=== PATIENT | female | born 1945 | race Caucasian/White ===

== ENCOUNTER 2020-10-11 08:40 | Outpatient (REF) | payer MEDICARE, SELFPAY ==
[2020-10-11 11:03] LABS: MANUAL DIFF FLAG NO
[2020-10-11 11:13] LABS: Basophils Percent Auto 0.5 % (0-2); Eosinophils Absolute Auto 0.1 X10*3/uL (0.0-0.4); Eosinophils Percent Auto 1.6 % (0-4); Hematocrit 42.9 % (37-47); Hemoglobin 14.1 g/dl (12.0-16.0); Imm Gran Abs Auto 0.04 X10*3/uL (0.00-0.03); Imm Gran Pct Auto 0.7 % (0.0-0.4); Lymphocytes Absolute Auto 1.2 X10*3/uL (1.2-4.9); Lymphocytes Percent Auto 19.9 % (20-40); Mean Corpuscular HGB Conc 32.9 g/dl (31.0-35.0); Mean Corpuscular Hemoglobin 30.3 pg (27.0-33.0); Mean Corpuscular Volume 92.1 fL (80-98); Mean Platelet Volume 12.1 fL (9.4-12.3); Monocytes Absolute Auto 0.5 X10*3/uL (0.1-1.2); Monocytes Percent Auto 8.8 % (2-11); Neutrophils Absolute Auto 4.2 X10*3/uL (2.0-8.3); Neutrophils Percent Auto 68.5 % (45-73); Platelet Count 160 X10*3/uL (160-400); Red Blood Count 4.66 X10*6/uL (4.20-5.50); Red Cell Distribution Width 11.9 % (11.0-16.0); White Blood Count 6.1 X10*3/uL (4.8-10.8)
[2020-10-11 11:38] LABS: Creatinine Urine 93.75 mg/dL; Microalbum/Creatinine Ratio Ur 38.4 ug/mg cr
[2020-10-11 11:46] LABS: Estimated Average Glucose 229 mg/dL; Hemoglobin A1c % 9.6 %
[2020-10-11 11:49] LABS: Alanine Aminotransferase 31 U/L (0-31); Albumin Level 4.5 g/dL (3.5-5.0); Alkaline Phosphatase 100 U/L (39-117); Anion Gap 15 (12-20); Aspartate Amino Transferase 24 U/L (5-31); Bilirubin Total 0.5 mg/dL (0.0-1.0); Blood Urea Nitrogen 24 mg/dL (9-16); Calcium 9.5 mg/dL (8.4-10.2); Carbon Dioxide 28 mmol/L (22-29); Chloride 100 mmol/L (96-108); Estimated Glomerular Filt Rate > 60; Glucose Random 257 mg/dL (60-115); Potassium 4.8 mmol/L (3.3-5.1); Sodium 138 mmol/L (135-145); Total Protein 7.1 g/dL (6.5-8.0)
[2020-10-11 11:51] LABS: Free T4 (Free Thyroxine) 0.99 ng/dL (0.71-1.85); Thyroid Stimulating Hormone 1.95 uIU/mL (0.32-4.0)
== END 2020-10-11 08:41 | disposition home or self-care (01) ==
LOC: HO.HMGCLDS 08:40
PROVIDERS: PCP Internal Medicine; Visit Provider Internal Medicine
DX: E11.9 Type 2 diabetes mellitus without complications (principal); I10 Essential (primary) hypertension; I25.10 Atherosclerotic heart disease of native coronary artery without angina pectoris; J44.9 Chronic obstructive pulmonary disease, unspecified; E03.9 Hypothyroidism, unspecified; E78.00 Pure hypercholesterolemia, unspecified
CPT/HCPCS: 36415; 80053; 82043; 83036; 84439; 84443; 85025

== ENCOUNTER 2020-10-28 08:31 | Outpatient (REF) | payer MEDICARE, SELFPAY ==
--- NOTE | ~2020-10-28 | MM_ITS ---
EXAMINATION: MM SCREENING DIGITAL BREAST TOMOSYNTHESIS, BILATERAL CLINICAL INFORMATION: Screening. Asymptomatic. The lifetime risk of breast cancer based on the Tyrer-Cuzick Model is 6.7%. COMPARISON: Mammography: July 11, 2019 and studies dating back to January 20, 2011 TECHNIQUE: Digital breast tomosynthesis is performed in both the craniocaudal and mediolateral oblique views along with computer-aided detection (CAD). Synthesized 2D images are generated from the tomosynthesis. FINDINGS: The breasts are heterogeneously dense, which may obscure small masses (ACR BI-RADS breast composition Category c). There are no significant masses, abnormal calcifications, or other abnormalities. MM/MM tomosynthesis screening BI IMPRESSION: There are no significant changes from prior study. ASSESSMENT: BI-RADS 1: Negative RECOMMENDATION: Routine annual mammography screening. This patient's information was entered into a reminder system with a target due date for their next mammogram.
== END 2020-10-28 08:32 | disposition home or self-care (01) ==
LOC: HO.MAMMO 08:31
PROVIDERS: PCP Internal Medicine; Visit Provider Internal Medicine
DX: Z12.31 Encounter for screening mammogram for malignant neoplasm of breast (principal)
CPT/HCPCS: 77063; 77067

== ENCOUNTER 2021-01-03 07:57 | Outpatient (REF) | payer MEDICARE, SELFPAY ==
[2021-01-03 12:08] LABS: MANUAL DIFF FLAG NO
[2021-01-03 12:24] LABS: Basophils Percent Auto 0.4 % (0-2); Eosinophils Absolute Auto 0.1 X10*3/uL (0.0-0.4); Eosinophils Percent Auto 1.7 % (0-4); Hematocrit 43.1 % (37-47); Imm Gran Abs Auto 0.02 X10*3/uL (0.00-0.03); Imm Gran Pct Auto 0.4 % (0.0-0.4); Lymphocytes Absolute Auto 1.1 X10*3/uL (1.2-4.9); Lymphocytes Percent Auto 19.4 % (20-40); Mean Corpuscular HGB Conc 32.5 g/dl (31.0-35.0); Mean Corpuscular Hemoglobin 30.4 pg (27.0-33.0); Mean Corpuscular Volume 93.7 fL (80-98); Mean Platelet Volume 11.9 fL (9.4-12.3); Monocytes Absolute Auto 0.5 X10*3/uL (0.1-1.2); Monocytes Percent Auto 9.6 % (2-11); Neutrophils Absolute Auto 3.7 X10*3/uL (2.0-8.3); Neutrophils Percent Auto 68.5 % (45-73); Platelet Count 156 X10*3/uL (160-400); Red Cell Distribution Width 11.8 % (11.0-16.0); White Blood Count 5.4 X10*3/uL (4.8-10.8)
[2021-01-03 12:27] LABS: Alanine Aminotransferase 39 U/L (0-31); Albumin Level 4.5 g/dL (3.5-5.0); Alkaline Phosphatase 93 U/L (39-117); Aspartate Amino Transferase 26 U/L (5-31); Bilirubin Direct 0.2 mg/dL (0.0-0.5); Bilirubin Total 0.6 mg/dL (0.0-1.0); Cholesterol 136 mg/dL; HDL Cholesterol 42 mg/dL; LDL Cholesterol Calculated 62 mg/dl; Triglycerides 164 mg/dL
[2021-01-03 12:31] LABS: Alanine Aminotransferase 39 U/L (0-31); Albumin Level 4.5 g/dL (3.5-5.0); Alkaline Phosphatase 93 U/L (39-117); Anion Gap 15 (12-20); Aspartate Amino Transferase 26 U/L (5-31); Bilirubin Total 0.6 mg/dL (0.0-1.0); Blood Urea Nitrogen 25 mg/dL (9-16); Calcium 9.8 mg/dL (8.4-10.2); Carbon Dioxide 28 mmol/L (22-29); Chloride 102 mmol/L (96-108); Estimated Glomerular Filt Rate > 60; Glucose Random 239 mg/dL (60-115); Potassium 5.2 mmol/L (3.3-5.1); Sodium 140 mmol/L (135-145); Total Protein 7.2 g/dL (6.5-8.0)
[2021-01-03 12:35] LABS: Estimated Average Glucose 203 mg/dL; Hemoglobin A1c % 8.7 %
== END 2021-01-03 07:58 | disposition home or self-care (01) ==
LOC: HO.HMGCLDS 07:57
PROVIDERS: PCP Internal Medicine; Visit Provider Internal Medicine Cardiovascular Disease
DX: I25.10 Atherosclerotic heart disease of native coronary artery without angina pectoris (principal); J44.9 Chronic obstructive pulmonary disease, unspecified; E11.9 Type 2 diabetes mellitus without complications; I10 Essential (primary) hypertension; I73.9 Peripheral vascular disease, unspecified
CPT/HCPCS: 36415; 80053; 80061; 80076; 82248; 83036; 85025

== ENCOUNTER 2021-04-01 07:11 | Outpatient (REF) | payer MEDICARE, SELFPAY ==
[2021-04-01 12:19] LABS: Free T4 (Free Thyroxine) 1.15 ng/dL (0.71-1.85); Thyroid Stimulating Hormone 1.76 uIU/mL (0.32-4.0)
[2021-04-01 12:22] LABS: Creatinine Urine 131.18 mg/dL; Microalbum/Creatinine Ratio Ur 23.6 ug/mg cr
[2021-04-01 12:30] LABS: Alanine Aminotransferase 25 U/L (0-31); Albumin Level 4.3 g/dL (3.5-5.0); Alkaline Phosphatase 83 U/L (39-117); Anion Gap 14 (12-20); Aspartate Amino Transferase 23 U/L (5-31); Bilirubin Total 0.6 mg/dL (0.0-1.0); Blood Urea Nitrogen 18 mg/dL (9-16); Calcium 9.4 mg/dL (8.4-10.2); Carbon Dioxide 24 mmol/L (22-29); Chloride 106 mmol/L (96-108); Estimated Glomerular Filt Rate > 60; Glucose Random 177 mg/dL (60-115); Potassium 4.6 mmol/L (3.3-5.1); Sodium 139 mmol/L (135-145); Total Protein 6.9 g/dL (6.5-8.0)
[2021-04-01 14:26] LABS: Estimated Average Glucose 160 mg/dL; Hemoglobin A1c % 7.2 %
== END 2021-04-01 07:12 | disposition home or self-care (01) ==
LOC: HO.HMGCLDS 07:11
PROVIDERS: PCP Internal Medicine; Visit Provider Internal Medicine
DX: E11.9 Type 2 diabetes mellitus without complications (principal); I25.10 Atherosclerotic heart disease of native coronary artery without angina pectoris; I10 Essential (primary) hypertension; E03.9 Hypothyroidism, unspecified
CPT/HCPCS: 36415; 80053; 82043; 83036; 84439; 84443

== ENCOUNTER 2021-07-16 09:45 | Outpatient (REF) | payer MEDICARE, SELFPAY ==
[2021-07-16 10:04] LABS: MANUAL DIFF FLAG NO
[2021-07-16 10:11] LABS: Basophils Percent Auto 0.6 % (0-2); Eosinophils Absolute Auto 0.1 X10*3/uL (0.0-0.4); Eosinophils Percent Auto 1.5 % (0-4); Hematocrit 44.4 % (37.0-47.0); Hemoglobin 14.5 g/dl (12.0-16.0); Imm Gran Abs Auto 0.04 X10*3/uL (0.00-0.03); Imm Gran Pct Auto 0.6 % (0.0-0.4); Lymphocytes Percent Auto 14.5 % (20-40); Mean Corpuscular HGB Conc 32.7 g/dl (31.0-35.0); Mean Corpuscular Hemoglobin 30.3 pg (27.0-33.0); Mean Corpuscular Volume 92.9 fL (80.0-98.0); Mean Platelet Volume 11.1 fL (9.4-12.3); Monocytes Absolute Auto 0.6 X10*3/uL (0.1-1.2); Monocytes Percent Auto 9.6 % (2-11); Neutrophils Absolute Auto 4.9 x10*3/uL (2.0-8.3); Neutrophils Percent Auto 73.2 % (45-73); Platelet Count 156 X10*3/uL (160-400); Red Blood Count 4.78 X10*6/uL (4.20-5.50); Red Cell Distribution Width 11.8 % (11.0-16.0); White Blood Count 6.7 X10*3/uL (4.8-10.8)
[2021-07-16 10:29] LABS: Estimated Average Glucose 166 mg/dL; Hemoglobin A1c % 7.4 %
[2021-07-16 10:48] LABS: Alanine Aminotransferase 28 U/L (0-31); Albumin Level 4.4 g/dL (3.5-5.0); Alkaline Phosphatase 83 U/L (39-117); Anion Gap 14 (12-20); Aspartate Amino Transferase 27 U/L (5-31); Bilirubin Total 0.4 mg/dL (0.0-1.0); Blood Urea Nitrogen 27 mg/dL (9-16); Calcium 9.7 mg/dL (8.4-10.2); Carbon Dioxide 26 mmol/L (22-29); Chloride 103 mmol/L (96-108); Cholesterol 146 mg/dL; Estimated Glomerular Filt Rate 60; Glucose Fasting 169 mg/dL (60-99); HDL Cholesterol 36 mg/dL; LDL Cholesterol Calculated 69 mg/dl; Magnesium 1.8 mg/dL (1.6-2.6); Sodium 138 mmol/L (135-145); Total Protein 7.3 g/dL (6.5-8.0); Triglycerides 208 mg/dL
[2021-07-16 11:13] LABS: Free T4 (Free Thyroxine) 1.21 ng/dL (0.71-1.85); Thyroid Stimulating Hormone 1.78 uIU/mL (0.32-4.0)
[2021-07-16 14:44] LABS: Creatinine Urine 56.93 mg/dL; Microalbum/Creatinine Ratio Ur 12.2 ug/mg cr
== END 2021-07-16 09:46 | disposition home or self-care (01) ==
LOC: HO.10HDL 09:45
PROVIDERS: Visit Provider Internal Medicine
DX: E03.9 Hypothyroidism, unspecified (principal); E11.9 Type 2 diabetes mellitus without complications; E78.00 Pure hypercholesterolemia, unspecified; I73.9 Peripheral vascular disease, unspecified; I25.10 Atherosclerotic heart disease of native coronary artery without angina pectoris
CPT/HCPCS: 36415; 80053; 80061; 82043; 83036; 83735; 84439; 84443; 85025

== ENCOUNTER 2021-11-03 07:55 | Outpatient (REF) | payer MEDICARE, SELFPAY ==
--- NOTE | ~2021-11-03 | MM_ITS ---
EXAMINATION: MM SCREENING DIGITAL BREAST TOMOSYNTHESIS, BILATERAL CLINICAL INFORMATION: Screening. Asymptomatic. The lifetime risk of breast cancer based on the Tyrer-Cuzick Model is 7%. COMPARISON: Mammography: 10/28/2020, 07/11/2019, 07/05/2018 TECHNIQUE: Digital breast tomosynthesis is performed in both the craniocaudal and mediolateral oblique views along with computer-aided detection (CAD). Synthesized 2D images are generated from the tomosynthesis. FINDINGS: There are scattered areas of fibroglandular density (ACR BI-RADS breast composition Category b). There are no significant masses, abnormal calcifications, or other abnormalities. Parenchymal pattern is similar to prior studies. There is no developing density or architectural abnormality. The axilla and skin contours are unremarkable. No significant changes. MM/MM tomosynthesis screening BI IMPRESSION: No mammographic evidence of malignancy. ASSESSMENT: BI-RADS 1: Negative RECOMMENDATION: Routine annual mammography screening. This patient's information was entered into a reminder system with a target due date for their next mammogram.
== END 2021-11-03 07:56 | disposition home or self-care (01) ==
LOC: HO.MAMMO 07:55
PROVIDERS: Visit Provider Internal Medicine
DX: Z12.31 Encounter for screening mammogram for malignant neoplasm of breast (principal)
CPT/HCPCS: 77063; 77067

== ENCOUNTER 2022-01-01 07:24 | Outpatient (REF) | payer MEDICARE, SELFPAY ==
[2022-01-01 11:19] LABS: MANUAL DIFF FLAG NO
[2022-01-01 11:26] LABS: Basophils Percent Auto 0.4 % (0-2); Eosinophils Absolute Auto 0.1 X10*3/uL (0.0-0.4); Eosinophils Percent Auto 1.6 % (0-4); Hematocrit 43.3 % (37.0-47.0); Hemoglobin 13.9 g/dl (12.0-16.0); Imm Gran Abs Auto 0.01 X10*3/uL (0.00-0.03); Imm Gran Pct Auto 0.2 % (0.0-0.4); Lymphocytes Absolute Auto 0.8 X10*3/uL (1.2-4.9); Lymphocytes Percent Auto 14.7 % (20-40); Mean Corpuscular HGB Conc 32.1 g/dl (31.0-35.0); Mean Corpuscular Volume 93.5 fL (80.0-98.0); Mean Platelet Volume 11.6 fL (9.4-12.3); Monocytes Absolute Auto 0.6 X10*3/uL (0.1-1.2); Monocytes Percent Auto 10.9 % (2-11); Neutrophils Absolute Auto 3.7 x10*3/uL (2.0-8.3); Neutrophils Percent Auto 72.2 % (45-73); Platelet Count 144 X10*3/uL (160-400); Red Blood Count 4.63 X10*6/uL (4.20-5.50); White Blood Count 5.2 X10*3/uL (4.8-10.8)
[2022-01-01 11:31] LABS: Estimated Average Glucose 171 mg/dL; Hemoglobin A1c % 7.6 %
[2022-01-01 11:41] LABS: Creatinine Urine 182.26 mg/dL; Microalbum/Creatinine Ratio Ur 59.2 ug/mg cr
[2022-01-01 11:51] LABS: Alanine Aminotransferase 34 U/L (0-31); Albumin Level 4.3 g/dL (3.5-5.0); Alkaline Phosphatase 84 U/L (39-117); Anion Gap 14 (12-20); Aspartate Amino Transferase 28 U/L (5-31); Bilirubin Total 0.4 mg/dL (0.0-1.0); Blood Urea Nitrogen 17 mg/dL (9-16); Calcium 9.6 mg/dL (8.4-10.2); Carbon Dioxide 26 mmol/L (22-29); Chloride 103 mmol/L (96-108); Cholesterol 132 mg/dL; Estimated Glomerular Filt Rate > 60; Glucose Fasting 238 mg/dL (60-99); HDL Cholesterol 37 mg/dL; LDL Cholesterol Calculated 57 mg/dl; Potassium 4.3 mmol/L (3.3-5.1); Sodium 139 mmol/L (135-145); Total Protein 7.1 g/dL (6.5-8.0); Triglycerides 193 mg/dL
[2022-01-01 12:13] LABS: Free T4 (Free Thyroxine) 1.06 ng/dL (0.71-1.85); Thyroid Stimulating Hormone 0.99 uIU/mL (0.32-4.0)
== END 2022-01-01 07:25 | disposition home or self-care (01) ==
LOC: HO.HMGCLDS 07:24
PROVIDERS: PCP Internal Medicine; Visit Provider Internal Medicine
DX: I25.10 Atherosclerotic heart disease of native coronary artery without angina pectoris (principal); I73.9 Peripheral vascular disease, unspecified; E11.9 Type 2 diabetes mellitus without complications; E03.9 Hypothyroidism, unspecified; E78.00 Pure hypercholesterolemia, unspecified
CPT/HCPCS: 36415; 80053; 80061; 82043; 83036; 84439; 84443; 85025

== ENCOUNTER 2022-03-14 05:06 | Emergency (ER) | payer MEDICARE, SELFPAY ==
--- NOTE | ~2022-03-14 | XR_ITS ---
EXAMINATION: XR ELBOW, LEFT CLINICAL INFORMATION: Swelling and redness COMPARISON: None TECHNIQUE: AP, lateral, and oblique views of the left elbow. FINDINGS: No fracture or dislocation. Alignment is anatomic. Joint spaces are maintained. No elbow joint effusion. Soft tissue swelling overlies the olecranon. XR/XR elbow LT min 3V IMPRESSION: No acute osseous abnormality. Soft tissue swelling over the olecranon could be associated with bursitis.
[2022-03-14 05:17] VITALS: BP 210/98; PULSE 93; RESP 18; TEMP 36.4; O2SAT 95; BMI 26.5
--- NOTE | 2022-03-14 06:41 | ED_ITS ---
HPI - Extremity Problem General Chief complaint: Extremity Problem Stated complaint: L elbow swelling, psoriasis ? Time Seen by Provider: 03/14/22 06:41 Source: patient Mode of arrival: ambulatory History of Present Illness HPI Narrative: 76-year-old female who presents with left elbow swelling after playing golf yesterday but does note that she was picking at her elbow approximately 2 days ago and has a history of diabetes as well as hypertension and denies any fevers or chills. Related Data Previous Rx's Medication Instructions Recorded amoxicillin 875 mg-potassium 1 tab PO Q12H 5 days #10 tabs 03/14/22 clavulanate 125 mg tablet Allergies Allergy/AdvReac Type Severity Reaction Status Date / Time No Known Allergies Allergy Verified 03/14/22 05:20 [No Known Allergies*] Review of Systems Review of Systems: Pertinent positives and negatives as stated in the HPI 10 point review of systems is otherwise negative. PMFSH Past Medical History Source: nursing notes reviewed Social History Social History Advance Directives: No Advance Directives Information Provided: Yes Physical Exam Vital Signs: Vital Signs: Last Vital Signs Temp 97.5 F 03/14/22 05:17 Pulse 93 03/14/22 05:17 Resp 18 03/14/22 05:17 BP 210/98 H 03/14/22 05:17 Pulse Ox 95 03/14/22 05:17 O2 Del Method 03/14/22 05:17 BMI result Body Mass Index 26.5 VITAL SIGNS: Reviewed. GENERAL: Well developed, well nourished, in no acute distress. HEAD: Normocephalic/atraumatic EYES: PERRLA, EOMI EARS: Ext canals without abnormality OROPHARYNX: no oral lesions noted, posterior pharynx clear LUNGS: Normal breath sounds. No adventitious sounds or accessory muscle use. SpO2<95> CARDIOVASCULAR: Regular rate and rhythm without noted murmurs, no JVD or lower extremity edema. ABDOMEN: Soft, non-tender, non-distended with bowel sounds. MUSCULOSKELETAL: No tenderness, deformities, or effusions noted on gross inspection. EXTREMITIES: No cyanosis, clubbing or edema; left upper extremity: There is noted swelling and redness to the left elbow. SKIN: Inspection of the skin reveals no rashes NEUROLOGIC: Alert and oriented x 4. Strength and sensation to light touch were grossly intact x 4. Course Course Course Narrative: 36-year-old female with history and clinical presentation suspicious for bursitis, but she does have diabetes and does report having picked at her elbow raising concerns for possible infection/bursitis. She was provided with combination analgesics and will receive an Tera wrap for compression and provided a backup prescription for antibiotics. Discharge Plan Discharge Clinical Impression: Bursitis, Golfers elbow of left upper extremity Patient Disposition: Home, Self-Care Instructions: Elbow Bursitis (ED) Additional Instructions: 1. Resume all home medications as prescribed. 2. Recommend jrxl-pdn-mokcejx Tylenol/ibuprofen as needed for pain control. Keep Tera wrap in place. 3. Follow-up with your primary care provider on Wednesday morning for re- evaluation. Return to the ER for any worsening symptoms. Prescriptions: New amoxicillin-pot clavulanate 875-125 mg tablet 1 tab PO Q12H 5 Days Qty: 10 0RF Referrals: Eric Chase MD [Primary Care Provider] -
[2022-03-14] MEDS: Acetaminophen 325 MG TABLET 975 MG PO (07:47)
[2022-03-14] MEDS: Ketorolac Tromethamine 15 MG/ML VIAL IM (07:47)
[2022-03-14 08:17] VITALS: BP 160/79; PULSE 79; RESP 16; O2SAT 96
== END 2022-03-14 08:24 | disposition home or self-care (01) ==
PROVIDERS: Emergency Provider Student in an Organized Health Care Education/Training Program; PCP Internal Medicine
DX: M70.32 Other bursitis of elbow, left elbow (principal); Y93.53 Activity, golf; M77.02 Medial epicondylitis, left elbow
CPT/HCPCS: 73080; 96372; 99284; J1885

== ENCOUNTER 2022-04-09 08:02 | Outpatient (REF) | payer MEDICARE, SELFPAY ==
[2022-04-09 12:22] LABS: Estimated Average Glucose 169 mg/dL; Hemoglobin A1c % 7.5 %
[2022-04-09 12:50] LABS: Alanine Aminotransferase 31 U/L (0-31); Albumin Level 4.3 g/dL (3.5-5.0); Alkaline Phosphatase 78 U/L (39-117); Anion Gap 18 (12-20); Aspartate Amino Transferase 27 U/L (5-31); Bilirubin Total 0.5 mg/dL (0.0-1.0); Blood Urea Nitrogen 19 mg/dL (9-16); Calcium 9.7 mg/dL (8.4-10.2); Carbon Dioxide 27 mmol/L (22-29); Chloride 101 mmol/L (96-108); Estimated Glomerular Filt Rate > 60; Glucose Random 244 mg/dL (60-115); Sodium 141 mmol/L (135-145); Total Protein 7.4 g/dL (6.5-8.0)
== END 2022-04-09 08:03 | disposition home or self-care (01) ==
LOC: HO.HMGCLDS 08:02
PROVIDERS: PCP Internal Medicine; Visit Provider Internal Medicine
DX: I10 Essential (primary) hypertension (principal); E11.9 Type 2 diabetes mellitus without complications
CPT/HCPCS: 36415; 80053; 83036

== ENCOUNTER → 2022-05-12 12:48 | Outpatient (BNVA) | payer MEDICARE, SELFPAY | PROVIDERS: PCP Internal Medicine; Referring Provider Internal Medicine; Visit Provider Internal Medicine Cardiovascular Disease | DX: I25.10 Atherosclerotic heart disease of native coronary artery without angina pectoris (principal); I73.9 Peripheral vascular disease, unspecified | CPT/HCPCS: 93005; 99202 ==

== ENCOUNTER 2022-06-27 09:08 | Outpatient (REF) | payer MEDICARE, SELFPAY ==
[2022-06-27 11:31] LABS: Blood Urea Nitrogen 17 mg/dL (9-16); Estimated Glomerular Filt Rate > 60
== END 2022-06-27 09:09 | disposition home or self-care (01) ==
LOC: HO.HMGCLDS 09:08
PROVIDERS: PCP Internal Medicine; Visit Provider Surgery Vascular Surgery
DX: I70.613 Atherosclerosis of nonbiological bypass graft(s) of the extremities with intermittent claudication, bilateral legs (principal)
CPT/HCPCS: 36415; 82565; 84520

== ENCOUNTER 2022-07-09 08:04 | Outpatient (REF) | payer MEDICARE, SELFPAY ==
[2022-07-09 11:21] LABS: MANUAL DIFF FLAG NO
[2022-07-09 11:47] LABS: Basophils Percent Auto 0.5 % (0-2); Eosinophils Absolute Auto 0.1 X10*3/uL (0.0-0.4); Eosinophils Percent Auto 1.2 % (0-4); Hematocrit 45.1 % (37.0-47.0); Hemoglobin 14.2 g/dl (12.0-16.0); Imm Gran Abs Auto 0.03 X10*3/uL (0.00-0.03); Imm Gran Pct Auto 0.5 % (0.0-0.4); Lymphocytes Absolute Auto 1.1 X10*3/uL (1.2-4.9); Lymphocytes Percent Auto 18.9 % (20-40); Mean Corpuscular HGB Conc 31.5 g/dl (31.0-35.0); Mean Corpuscular Hemoglobin 29.7 pg (27.0-33.0); Mean Corpuscular Volume 94.4 fL (80.0-98.0); Mean Platelet Volume 11.7 fL (9.4-12.3); Monocytes Absolute Auto 0.5 X10*3/uL (0.1-1.2); Neutrophils Absolute Auto 4.1 x10*3/uL (2.0-8.3); Neutrophils Percent Auto 69.9 % (45-73); Platelet Count 142 X10*3/uL (160-400); Red Blood Count 4.78 X10*6/uL (4.20-5.50); Red Cell Distribution Width 11.9 % (11.0-16.0); White Blood Count 5.8 X10*3/uL (4.8-10.8)
[2022-07-09 12:23] LABS: Creatinine Urine 228.12 mg/dL; Microalbum/Creatinine Ratio Ur 46.9 ug/mg cr
[2022-07-09 12:37] LABS: Alanine Aminotransferase 28 U/L (0-31); Albumin Level 4.2 g/dL (3.5-5.0); Alkaline Phosphatase 74 U/L (39-117); Anion Gap 13 (12-20); Aspartate Amino Transferase 24 U/L (5-31); Bilirubin Total 0.4 mg/dL (0.0-1.0); Blood Urea Nitrogen 18 mg/dL (9-16); Calcium 9.1 mg/dL (8.4-10.2); Carbon Dioxide 26 mmol/L (22-29); Chloride 106 mmol/L (96-108); Cholesterol 133 mg/dL; Estimated Glomerular Filt Rate > 60; Free T4 (Free Thyroxine) 1.16 ng/dL (0.71-1.85); Glucose Fasting 245 mg/dL (60-99); HDL Cholesterol 39 mg/dL; LDL Cholesterol Calculated 66 mg/dl; Sodium 141 mmol/L (135-145); Thyroid Stimulating Hormone 1.63 uIU/mL (0.32-4.0); Total Protein 6.7 g/dL (6.5-8.0); Triglycerides 141 mg/dL
[2022-07-09 13:01] LABS: Estimated Average Glucose 177 mg/dL; Hemoglobin A1c % 7.8 %
== END 2022-07-09 08:05 | disposition home or self-care (01) ==
LOC: HO.HMGCLDS 08:04
PROVIDERS: PCP Internal Medicine; Visit Provider Internal Medicine
DX: I25.10 Atherosclerotic heart disease of native coronary artery without angina pectoris (principal); I73.9 Peripheral vascular disease, unspecified; I10 Essential (primary) hypertension; E11.9 Type 2 diabetes mellitus without complications; E03.9 Hypothyroidism, unspecified
CPT/HCPCS: 36415; 80053; 80061; 82043; 83036; 84439; 84443; 85025

== ENCOUNTER 2022-11-06 07:47 | Outpatient (REF) | payer MEDICARE, SELFPAY ==
--- NOTE | ~2022-11-06 | MM_ITS ---
EXAMINATION: MM SCREENING DIGITAL BREAST TOMOSYNTHESIS, BILATERAL CLINICAL INFORMATION: Screening. Asymptomatic. The lifetime risk of breast cancer based on the Tyrer-Cuzick Model is 6%. COMPARISON: Mammography: 11/03/2021, 10/28/2020, 07/11/2019 TECHNIQUE: Digital breast tomosynthesis is performed in both the craniocaudal and mediolateral oblique views along with computer-aided detection (CAD). Synthesized 2D images are generated from the tomosynthesis. FINDINGS: There are scattered areas of fibroglandular density (ACR BI-RADS breast composition Category b). There are no significant masses, abnormal calcifications, or other abnormalities. No architectural abnormality or developing density or significant change from prior studies. Incidental low left axillary tail node is again noted. There are scattered bilateral benign coarse round and rim calcifications. MM/MM tomosynthesis screening BI IMPRESSION: No mammographic evidence of malignancy. ASSESSMENT: BI-RADS 2: Benign RECOMMENDATION: Routine annual mammography screening. This patient's information was entered into a reminder system with a target due date for their next mammogram.
== END 2022-11-06 07:48 | disposition home or self-care (01) ==
LOC: HO.MAMMO 07:47
PROVIDERS: PCP Internal Medicine; Visit Provider Internal Medicine
DX: Z12.31 Encounter for screening mammogram for malignant neoplasm of breast (principal)
CPT/HCPCS: 77063; 77067

== ENCOUNTER 2023-01-13 08:05 | Outpatient (REF) | payer MEDICARE, SELFPAY ==
[2023-01-13 11:22] LABS: MANUAL DIFF FLAG NO
[2023-01-13 11:37] LABS: Basophils Percent Auto 0.7 % (0-2); Eosinophils Absolute Auto 0.1 X10*3/uL (0.0-0.4); Hemoglobin 14.1 g/dl (12.0-16.0); Imm Gran Abs Auto 0.03 X10*3/uL (0.00-0.03); Imm Gran Pct Auto 0.6 % (0.0-0.4); Lymphocytes Absolute Auto 1.2 X10*3/uL (1.2-4.9); Lymphocytes Percent Auto 21.8 % (20-40); Mean Corpuscular HGB Conc 31.3 g/dl (31.0-35.0); Mean Corpuscular Hemoglobin 29.1 pg (27.0-33.0); Mean Corpuscular Volume 92.8 fL (80.0-98.0); Mean Platelet Volume 11.8 fL (9.4-12.3); Monocytes Absolute Auto 0.6 X10*3/uL (0.1-1.2); Monocytes Percent Auto 10.5 % (2-11); Neutrophils Absolute Auto 3.5 x10*3/uL (2.0-8.3); Neutrophils Percent Auto 64.4 % (45-73); Platelet Count 129 X10*3/uL (160-400); Red Blood Count 4.85 X10*6/uL (4.20-5.50); Red Cell Distribution Width 12.2 % (11.0-16.0); White Blood Count 5.4 X10*3/uL (4.8-10.8)
[2023-01-13 11:50] LABS: Estimated Average Glucose 177 mg/dL; Hemoglobin A1c % 7.8 %
[2023-01-13 12:08] LABS: Alanine Aminotransferase 29 U/L (0-31); Albumin Level 4.3 g/dL (3.5-5.0); Alkaline Phosphatase 83 U/L (39-117); Anion Gap 10 (12-20); Aspartate Amino Transferase 25 U/L (5-31); Bilirubin Total 0.5 mg/dL (0.0-1.0); Blood Urea Nitrogen 18 mg/dL (9-16); Calcium 9.6 mg/dL (8.4-10.2); Carbon Dioxide 29 mmol/L (22-29); Chloride 105 mmol/L (96-108); Estimated Glomerular Filt Rate > 60; Free T4 (Free Thyroxine) 1.17 ng/dL (0.71-1.85); Glucose Random 200 mg/dL (60-115); Potassium 4.7 mmol/L (3.3-5.1); Sodium 139 mmol/L (135-145); Thyroid Stimulating Hormone 1.62 uIU/mL (0.32-4.0); Total Protein 7.3 g/dL (6.5-8.0)
== END 2023-01-13 08:06 | disposition home or self-care (01) ==
LOC: HO.HMGCLDS 08:05
PROVIDERS: PCP Internal Medicine; Visit Provider Internal Medicine
DX: J44.9 Chronic obstructive pulmonary disease, unspecified (principal); I25.10 Atherosclerotic heart disease of native coronary artery without angina pectoris; I10 Essential (primary) hypertension; E11.9 Type 2 diabetes mellitus without complications; R35.1 Nocturia
CPT/HCPCS: 36415; 80053; 83036; 84439; 84443; 85025

== ENCOUNTER → 2023-05-31 07:49 | Outpatient (REF) | payer MEDICARE, SELFPAY ==
--- NOTE | 2023-05-31 07:52 | CA_ITS ---
Transthoracic Echocardiogram Patient (Last, First, Middle): Karina Tsai A Gender: Female Date of : 1945 Age: 77 Procedure Date: 05/31/2023 Procedure Type: Transthoracic Echocardiogram Location: OP Height: 160.02 cm Weight: 67.13 kg BSA: 1.70 m2 Heart Rate: 67 bpm BP: 169 / 90 mmHg Grants Administrator: PATIENCE Referring MD: Eric Chase MD Symptoms: R01.1 MURMUR Study Quality: Adequate ECG Rhythm: Sinus Conclusions: - The left ventricular systolic function is hyperdynamic. The visually estimated ejection fraction is >70%. - Aortic valve sclerosis, but no significant stenosis. - There is moderate mitral annular calcification. Findings Left Ventricle Normal left ventricular cavity size. The left ventricular systolic function is hyperdynamic. The visually estimated ejection fraction is >70%. There is no evidence of regional wall motion abnormalities. Evidence suggests grade I (mild) diastolic dysfunction. There is severe septal asymmetric hypertrophy. LV peak GLS 18.4%. Right Ventricle Normal right ventricular cavity size. There is mildly decreased right ventricular systolic function. Atria Both atria are normal in size. Aortic Valve There is mild calcification of the aortic valve. There is no aortic valve regurgitation. No significant aortic stenosis. Mitral Valve There is mild anterior mitral leaflet thickening. There is moderate mitral annular calcification. There is mild mitral valve regurgitation. There is no mitral valve stenosis. Pulmonic Valve The pulmonic valve is likely normal. Tricuspid Valve Normal tricuspid valve structure. There is trace tricuspid valve regurgitation. There is no evidence of pulmonary hypertension. Great Vessels The asc aorta is normal in size. Venous The inferior vena cava is normal in size and collapses greater than 50% with inspiration. Pericardium/Pleural Prominent epicardial adipose tissue noted. There is no evidence of pericardial effusion. Prior Study Comparison No prior study available for comparison. Measurements 2D Linear Measurements IVSd: 1.68 0.6-0.9/0.6-1.0 cm LVIDd: 4.29 3.9-5.3/4.2-5.9 cm LVIDd Index: 2.52 2.4-3.2/2.2-3.1 cm/m2 LVIDs: 2.23 2.0-3.6 cm LVPWd: 0.95 0.7-1.1 cm LA Diam: 3.40 2.7-3.8/3.0-4.0 cm LAIDs Index: 2.00 1.5-2.3 cm/m2 LV Mass: 262.07 67-162/88-224 g LV Mass Index: 154.16 43-95/49-115 g/m2 LVOT Diam: 1.80 3.0+(-)1.3 cm 2D Systolic Function EF 4C: 78.20 >55% EF 2C: 75.10 >55% EF BiP: 76.90 >55% Mitral Valve MV Pk E: 1.09 MV PK A: 1.42 MV Decel Time: 285.00 E/A: 0.80 E'Lateral: 5.00 E'Medial: 4.46 E/E' Med: 24.40 E/E' Lat: 21.80 PHT: 84.00 MVA PHT: 2.62 Decel Moffat: 3.82 Aortic Valve AoV Pk Magdaleno: 1.84 AoV Mn Magdaleno: 1.29 AoV VTI: 0.46 AoV Pk Grad: 14.00 Aov Mn Grad: 7.00 LUCILLE Cont.VTI: 1.51 LVOT LVOT Pk Magdaleno: 1.05 LVOT Mn Magdaleno: 0.80 LVOT VTI: 0.27 LVOT Pk Grad: 4.00 LVOT Mn Grad: 3.00 LVOT Diam: 1.80 LVOT Area: 2.54 Diastolic Function MV Pk E: 1.09 MV Pk A: 1.42 E/A: 0.80 E'Medial: 4.46 E/E' Med: 24.40 E' Laterial: 5.00 E/E' Lat: 21.80 Right Ventricle TAPSE (mm): 15.50 TVS' Magdaleno: 10.10 Tricuspid Valve TR Pk Magdaleno: 2.13 TR Pk Grad: 18.00 RA Press: 3.00 RVSP: 21.00 Great Vessels Aorta Sinus of Valsalva: 3.10 2.0-3.5 cm Ao Asc: 3.30 2.1-3.4 cm Pulmonary Valve PV Pk Magdaleno: 0.87 Peak PV Grad: 3.00 Updated in Other Vendor System with Status of Final Diallo Naranjo MD electronically signed on 05/31/2023 9:33:09 AM with status of Final
== END ==
LOC: HO.CARD 07:49
PROVIDERS: PCP Internal Medicine; Visit Provider Internal Medicine
DX: R01.1 Cardiac murmur, unspecified (principal)
CPT/HCPCS: 93306; 93356

== ENCOUNTER → 2023-05-31 07:52 | Outpatient (BNV) | payer MEDICARE, SELFPAY | PROVIDERS: PCP Internal Medicine; Visit Provider Internal Medicine | DX: I34.0 Nonrheumatic mitral (valve) insufficiency (principal) | CPT/HCPCS: 93306 ==

== ENCOUNTER 2023-06-01 08:48 | Outpatient (AMB) | payer MEDICARE, SELFPAY ==
[2023-06-01 08:50] VITALS: BP 130/82; PULSE 62; BMI 26.6
--- NOTE | 2023-06-01 08:50 | A.OFFVIS_ITS ---
Intake Vital Signs 06/01/23 08:50 Height 5 ft 3 in Weight 149 lb 14.629 oz BMI 26.6 BP 130/82 Blood Pressure Location Lt brachial Position Sitting Pulse 62 Intake Visit Reasons: 1 yr f/up Intake Note: 1 year follow-up with ekg after echo feeling good Cosmetic Counselor Required: No Allergies No Known Allergies [No Known Allergies*] Allergy (Verified 03/14/22 05:20) Medication List - Last Reconciled 06/01/23 by Darshan Estrada MD aspirin (Adult Aspirin Regimen) 81 mg PO DAILY [id number]-hib-[id number]-and 600 mg calcium- 800 unit-50 mg 1 tab PO BEDTIME flaxseed oil ([place]-3 Flaxseed Oil) 1,000 mg PO DAILY gabapentin 300 mg PO DAILY glipizide 10 mg PO BID levothyroxine 100 mcg PO DAILY losartan 100 mg PO DAILY metformin ER 1,000 mg PO BID metoprolol tartrate 50 mg PO BID rosuvastatin 40 mg PO DAILY sitagliptin phosphate (Januvia) 50 mg PO DAILY HPI HPI Comments History of Present Illness Details Karina comes for follow-up. She underwent a right lower extremity surgical revascularization for limiting claudication. She is doing well with improved claudication that lower extremity although has not claudication left lower extremity being followed by vascular surgery. She also going to have carotid duplex done in about a month's time at [facility] with Dr. Gentile. She denies any anginal symptoms with her current activity level. She takes all her medications. Last LDL was 66 mg/dL. No prolonged palpitation irregular heartbeat. No lightheadedness, syncope. Recent echo could does hyperdynamic LV ejection fraction greater than 70% with calcific valve disease without significant abnormality with hemodynamics [facility] Medical History Tobacco use Diabetes Hyperlipidemia HTN (hypertension) Carotid disease, bilateral PVD (peripheral vascular disease) CAD (coronary artery disease) Surgical History Status post bilateral carotid endarterectomy Stented coronary artery Review of Systems Const Denies chills, Denies fatigue, Denies fever(s), Denies frequent falls, Denies weakness, Denies weight gain and Denies weight loss ENT Denies dizziness Card Denies chest pain, Denies leg edema, Denies lightheadedness, Denies palpitations, Denies dyspnea, Denies dyspnea on exertion, Denies orthopnea and Denies other (loss of consciousness) Resp Denies cough, Denies dyspnea and Denies dyspnea on exertion GI Denies hematochezia and Denies change in stool character Musc Denies abnormal gait, Denies muscle weakness, Denies numbness, Denies radiating pain into limb and Denies tingling Neuro Denies Abnormal speech present, Denies abnormal gait, Denies dizziness, Denies frequent falls, Denies numbness, Denies tingling and Denies weakness Endo Denies fatigue and Denies palpitations Physical Exam Vital Signs: Last Vital Signs Pulse 62 06/01/23 08:50 BP 130/82 06/01/23 08:50 BMI result Body Mass Index 26.6 Const General: cooperative, comfortable, no acute distress, alert, awake and Physically active Nutritional Appearance: thin Orientation/consciousness: patient oriented x3 Limitations: no limitations HEENT Head: Yes normocephalic and Yes atraumatic Neck Neck: Yes trachea midline, Yes supple and Yes no JVD Carotids: bruit on the left Chest Chest palpation & inspection: normal inspection of the chest Resp Effort & Inspection: normal respiratory effort Auscultation: clear to auscultation bilaterally and diminished lung sounds Cardio Jugular venous distension: no JVD Palpation: normal PMI Rate: regular rate Rhythm: regular rhythm Heart sounds: S1 normal heart sound present, S2 normal heart sound present, no click, no gallops, Murmur heart sound present systolic early and no rubs Peripheral pulses: other (Absent distal pulses) GI Auscultation: normal bowel sounds Skin General skin exam: no rashes or lesions noted Neuro General: patient oriented x3 and no focal motor deficits Speech: No Abnormal speech present Extrem General: Yes no clubbing, cyanosis or edema Office Procedures EKG Details: EKG shows normal sinus rhythm with low-voltage QRS 50636-[id number], Complete Assessment & Plan Assessment & Plan (1) CAD (coronary artery disease): Code(s): I25.10 - Atherosclerotic heart disease of [place] coronary artery without angina pectoris Plan: CAD with remote RCA stenting with no current symptoms of angina at low threshold with diffuse vascular disease requiring revascularization and still limiting claudication. Continue aggressive medical therapy. Complete smoking cessation was advised although she says this is very difficult. She is currently on low- dose aspirin therapy and we discussed benefits and addition of low dose anticoagulant therapy such as Xarelto 2.5 mg b.i.d. which has shown to reduce limb loss events as well as cardiovascular events. She wants to think about it. Continue high-intensity statin therapy. Continue aggressive management of diabetes as well as hypertension. Goal hemoglobin A1c less than 7% being pursue 3 our office. Goal blood pressure less than 130/84. (2) HTN (hypertension): Code(s): I10 - Essential (primary) hypertension Plan: Hypertension which is currently well optimized on current therapy with losartan and metoprolol. Continue the same. Advised to monitor blood pressure at home and maintain a log. Goal blood pressure less than 130/84. Low-salt diet was discussed advised to maintain heart healthy lifestyle. Will follow up in the clinic in 1 year's time, sooner p.r.n.. Thank you for allowing me to partake in her care Coding Level of Care Code Est Pt Level 4 (81068) Diagnoses CAD (coronary artery disease) I25.10 HTN (hypertension) I10 CPT Codes EKG - CPT: 55799-[id number], Complete ([id number])
== END 2023-06-01 09:12 | disposition home or self-care (01) ==
PROVIDERS: Visit Provider Internal Medicine Cardiovascular Disease
DX: I25.10 Atherosclerotic heart disease of native coronary artery without angina pectoris (principal); I10 Essential (primary) hypertension
CPT/HCPCS: 93010; 99214

== ENCOUNTER → 2023-06-01 08:48 | Outpatient (BNVA) | payer MEDICARE, SELFPAY | PROVIDERS: Visit Provider Internal Medicine Cardiovascular Disease | DX: I25.10 Atherosclerotic heart disease of native coronary artery without angina pectoris (principal); I10 Essential (primary) hypertension | CPT/HCPCS: 93005; 99212 ==

== ENCOUNTER 2023-06-21 07:26 | Outpatient (REF) | payer MEDICARE, SELFPAY ==
[2023-06-21 11:31] LABS: MANUAL DIFF FLAG NO
[2023-06-21 11:43] LABS: Basophils Percent Auto 0.6 % (0-2); Eosinophils Absolute Auto 0.1 X10*3/uL (0.0-0.4); Eosinophils Percent Auto 1.6 % (0-4); Hematocrit 44.8 % (37.0-47.0); Hemoglobin 14.5 g/dl (12.0-16.0); Imm Gran Abs Auto 0.04 X10*3/uL (0.00-0.03); Imm Gran Pct Auto 0.6 % (0.0-0.4); Lymphocytes Absolute Auto 1.2 X10*3/uL (1.2-4.9); Lymphocytes Percent Auto 18.1 % (20-40); Mean Corpuscular HGB Conc 32.4 g/dl (31.0-35.0); Mean Corpuscular Hemoglobin 30.5 pg (27.0-33.0); Mean Corpuscular Volume 94.3 fL (80.0-98.0); Mean Platelet Volume 12.2 fL (9.4-12.3); Monocytes Absolute Auto 0.6 X10*3/uL (0.1-1.2); Monocytes Percent Auto 8.7 % (2-11); Neutrophils Absolute Auto 4.5 x10*3/uL (2.0-8.3); Neutrophils Percent Auto 70.4 % (45-73); Platelet Count 137 X10*3/uL (160-400); Red Blood Count 4.75 X10*6/uL (4.20-5.50); Red Cell Distribution Width 11.9 % (11.0-16.0); White Blood Count 6.5 X10*3/uL (4.8-10.8)
[2023-06-21 11:48] LABS: Estimated Average Glucose 177 mg/dL; Hemoglobin A1c % 7.8 % (<6.0)
[2023-06-21 12:01] LABS: Creatinine Urine 207.15 mg/dL; Microalbum/Creatinine Ratio Ur 24.6 ug/mg cr (<30)
[2023-06-21 12:23] LABS: Alanine Aminotransferase 30 U/L (0-31); Albumin Level 4.2 g/dL (3.5-5.0); Alkaline Phosphatase 81 U/L (39-117); Anion Gap 12 (12-20); Aspartate Amino Transferase 26 U/L (5-31); Bilirubin Total 0.4 mg/dL (0.0-1.0); Blood Urea Nitrogen 19 mg/dL (9-16); Calcium 9.7 mg/dL (8.4-10.2); Carbon Dioxide 28 mmol/L (22-29); Chloride 104 mmol/L (96-108); Cholesterol 136 mg/dL (<200); Estimated Glomerular Filt Rate > 60; Free T4 (Free Thyroxine) 1.08 ng/dL (0.71-1.85); Glucose Fasting 252 mg/dL (60-99); HDL Cholesterol 39 mg/dL (>40); LDL Cholesterol Calculated 62 mg/dL (<100); Potassium 4.6 mmol/L (3.3-5.1); Sodium 139 mmol/L (135-145); Thyroid Stimulating Hormone 1.69 uIU/mL (0.32-4.0); Total Protein 7.1 g/dL (6.5-8.0); Triglycerides 177 mg/dL (<150)
== END 2023-06-21 07:27 | disposition home or self-care (01) ==
LOC: HO.HMGCLDS 07:26
PROVIDERS: PCP Internal Medicine; Visit Provider Internal Medicine
DX: J44.9 Chronic obstructive pulmonary disease, unspecified (principal); I25.10 Atherosclerotic heart disease of native coronary artery without angina pectoris; I10 Essential (primary) hypertension; E11.9 Type 2 diabetes mellitus without complications; E78.00 Pure hypercholesterolemia, unspecified; E03.9 Hypothyroidism, unspecified
CPT/HCPCS: 36415; 80053; 80061; 82043; 82570; 83036; 84439; 84443; 85025

== ENCOUNTER 2023-10-21 09:10 | Outpatient (REF) | payer MEDICARE, SELFPAY ==
[2023-10-21 11:32] LABS: Estimated Average Glucose 177 mg/dL; Hemoglobin A1c % 7.8 % (<6.0)
[2023-10-21 11:41] LABS: Alanine Aminotransferase 27 U/L (0-31); Albumin Level 4.3 g/dL (3.5-5.0); Alkaline Phosphatase 91 U/L (39-117); Anion Gap 16 (12-20); Aspartate Amino Transferase 23 U/L (5-31); Bilirubin Total 0.4 mg/dL (0.0-1.0); Blood Urea Nitrogen 18 mg/dL (9-16); Calcium 10.2 mg/dL (8.4-10.2); Carbon Dioxide 26 mmol/L (22-29); Chloride 101 mmol/L (96-108); Estimated Glomerular Filt Rate > 60; Glucose Random 201 mg/dL (60-115); Potassium 4.7 mmol/L (3.3-5.1); Sodium 138 mmol/L (135-145); Total Protein 7.4 g/dL (6.5-8.0)
[2023-10-21 11:48] LABS: Creatinine Urine 93.07 mg/dL; Microalbum/Creatinine Ratio Ur 97.7 ug/mg cr (<30)
== END 2023-10-21 09:11 | disposition home or self-care (01) ==
LOC: HO.HMGCLDS 09:10
PROVIDERS: PCP Internal Medicine; Visit Provider Internal Medicine
DX: E11.9 Type 2 diabetes mellitus without complications (principal); N18.9 Chronic kidney disease, unspecified; I10 Essential (primary) hypertension; J44.9 Chronic obstructive pulmonary disease, unspecified
CPT/HCPCS: 36415; 80053; 82043; 82570; 83036

== ENCOUNTER 2023-11-11 07:49 | Outpatient (REF) | payer MEDICARE, SELFPAY ==
--- NOTE | ~2023-11-11 | MM_ITS ---
EXAMINATION: MM SCREENING DIGITAL BREAST TOMOSYNTHESIS, BILATERAL CLINICAL INFORMATION: Screening. Asymptomatic. COMPARISON: Mammography: This study is compared with prior exams dating back to 2019. TECHNIQUE: Digital breast tomosynthesis is performed in both the craniocaudal and mediolateral oblique views along with computer-aided detection (CAD). Synthesized 2D images are generated from the tomosynthesis. FINDINGS: There are scattered areas of fibroglandular density (ACR BI-RADS breast composition Category b). There are no significant masses, abnormal calcifications, or other abnormalities. There are scattered, benign calcifications in each breast. MM/MM tomosynthesis screening BI IMPRESSION: No mammographic evidence of malignancy. ASSESSMENT: BI-RADS BI-RADS 2 - Benign Findings RECOMMENDATION: Routine annual mammography screening. 1 year F/U This examination should not preclude the clinical evaluation of a suspicious palpable abnormality. This patient's information was entered into a reminder system with a target due date for their next mammogram.
== END 2023-11-11 07:50 | disposition home or self-care (01) ==
LOC: HO.MAMMO 07:49
PROVIDERS: PCP Internal Medicine; Visit Provider Internal Medicine
DX: Z12.31 Encounter for screening mammogram for malignant neoplasm of breast (principal)
CPT/HCPCS: 77063; 77067

== ENCOUNTER → 2023-11-11 08:00 | Outpatient (BNV) | payer MEDICARE, SELFPAY | PROVIDERS: PCP Internal Medicine; Visit Provider Radiology Diagnostic Radiology | DX: Z12.31 Encounter for screening mammogram for malignant neoplasm of breast (principal) | CPT/HCPCS: 77063; 77067 ==

== ENCOUNTER 2024-02-07 09:07 | Outpatient (REF) | payer MEDICARE, SELFPAY ==
[2024-02-07 13:58] LABS: MANUAL DIFF FLAG NO
[2024-02-07 14:10] LABS: Basophils Percent Auto 0.7 % (0-2); Eosinophils Absolute Auto 0.1 X10*3/uL (0.0-0.4); Eosinophils Percent Auto 0.9 % (0-4); Hematocrit 42.2 % (37.0-47.0); Hemoglobin 13.7 g/dl (12.0-16.0); Imm Gran Abs Auto 0.03 X10*3/uL (0.00-0.03); Imm Gran Pct Auto 0.6 % (0.0-0.4); Lymphocytes Percent Auto 18.4 % (20-40); Mean Corpuscular HGB Conc 32.5 g/dl (31.0-35.0); Mean Corpuscular Hemoglobin 30.2 pg (27.0-33.0); Mean Platelet Volume 11.8 fL (9.4-12.3); Monocytes Absolute Auto 0.5 X10*3/uL (0.1-1.2); Monocytes Percent Auto 9.3 % (2-11); Neutrophils Absolute Auto 3.8 x10*3/uL (2.0-8.3); Neutrophils Percent Auto 70.1 % (45-73); Platelet Count 141 X10*3/uL (160-400); Red Blood Count 4.54 X10*6/uL (4.20-5.50); Red Cell Distribution Width 12.2 % (11.0-16.0); White Blood Count 5.4 X10*3/uL (4.8-10.8)
[2024-02-07 14:20] LABS: Estimated Average Glucose 183 mg/dL
[2024-02-07 14:56] LABS: Creatinine Urine 95.37 mg/dL; Microalbum/Creatinine Ratio Ur 24.1 ug/mg cr (<30)
[2024-02-07 15:13] LABS: Alanine Aminotransferase 30 U/L (0-31); Albumin Level 4.3 g/dL (3.5-5.0); Alkaline Phosphatase 80 U/L (39-117); Anion Gap 15 (12-20); Aspartate Amino Transferase 25 U/L (5-31); Bilirubin Total 0.5 mg/dL (0.0-1.0); Blood Urea Nitrogen 17 mg/dL (9-16); Calcium 9.5 mg/dL (8.4-10.2); Carbon Dioxide 25 mmol/L (22-29); Chloride 105 mmol/L (96-108); Estimated Glomerular Filt Rate > 60; Free T4 (Free Thyroxine) 1.11 ng/dL (0.71-1.85); Glucose Random 176 mg/dL (60-115); Potassium 4.5 mmol/L (3.3-5.1); Sodium 140 mmol/L (135-145); Thyroid Stimulating Hormone 1.02 uIU/mL (0.32-4.0); Total Protein 7.1 g/dL (6.5-8.0)
== END 2024-02-07 09:08 | disposition home or self-care (01) ==
LOC: HO.HMGCLDS 09:07
PROVIDERS: PCP Internal Medicine; Visit Provider Internal Medicine
DX: I25.10 Atherosclerotic heart disease of native coronary artery without angina pectoris (principal); I73.9 Peripheral vascular disease, unspecified; E11.9 Type 2 diabetes mellitus without complications; I10 Essential (primary) hypertension; J44.9 Chronic obstructive pulmonary disease, unspecified; E03.9 Hypothyroidism, unspecified
CPT/HCPCS: 36415; 80053; 82043; 82570; 83036; 84439; 84443; 85025

== ENCOUNTER 2024-04-17 07:12 | Outpatient (REF) | payer MEDICARE, SELFPAY ==
[2024-04-17 10:33] LABS: Estimated Average Glucose 180 mg/dL; Hemoglobin A1c % 7.9 % (<6.0)
[2024-04-17 10:56] LABS: Anion Gap 15 (12-20); Blood Urea Nitrogen 17 mg/dL (9-16); Calcium 10.1 mg/dL (8.4-10.2); Carbon Dioxide 26 mmol/L (22-29); Chloride 103 mmol/L (96-108); Estimated Glomerular Filt Rate > 60; Glucose Random 244 mg/dL (60-115); Potassium 4.5 mmol/L (3.3-5.1); Sodium 139 mmol/L (135-145)
== END 2024-04-17 07:13 | disposition home or self-care (01) ==
LOC: HO.HMGCLDS 07:12
PROVIDERS: PCP Internal Medicine; Visit Provider Internal Medicine
DX: E11.9 Type 2 diabetes mellitus without complications (principal); J44.9 Chronic obstructive pulmonary disease, unspecified; I25.10 Atherosclerotic heart disease of native coronary artery without angina pectoris
CPT/HCPCS: 36415; 80048; 83036

== ENCOUNTER 2024-06-16 16:31 | Outpatient (REF) | payer MEDICARE, SELFPAY ==
--- NOTE | ~2024-06-16 | XR_ITS ---
EXAMINATION: XR CHEST CLINICAL INFORMATION: Cough, congestion. Evaluate for pneumonia. COMPARISON: Chest radiograph dated 01/25/2012. TECHNIQUE: 2 views of the chest were obtained. FINDINGS: The lungs are clear. The cardiomediastinal silhouette is normal in size. There is no pleural effusion or pneumothorax. No acute osseous abnormality. XR/XR chest 2V IMPRESSION: No acute cardiopulmonary findings. Electronically signed by: Raymond Navarro MD 06/17/2024 10:19 AM ROSS
== END 2024-06-16 16:32 | disposition home or self-care (01) ==
LOC: HO.XRAY 16:31
PROVIDERS: PCP Internal Medicine; Visit Provider Internal Medicine
DX: R05.9 Cough, unspecified (principal)
CPT/HCPCS: 71046

== ENCOUNTER 2024-06-27 14:46 | Outpatient (AMB) | payer MEDICARE, SELFPAY ==
--- NOTE | 2024-06-27 15:02 | A.OFFVIS_ITS ---
Vital Signs 06/27/24 15:05 Height 5 ft 3 in Weight 143 lb 4.807 oz BMI 25.4 BP 110/64 Blood Pressure Location Lt brachial Position Sitting Pulse 67 Intake Visit Reasons: r/s 05/25/24 1 year followup w/ekg Intake Note: 1 year follow-up with ekg feeling good Online User Experience Strategist Required: No Allergies No Known Allergies [No Known Allergies*] Allergy (Verified 03/14/22 05:20) Medication List - Last Reconciled 06/27/24 by Darshan Estrada MD aspirin (Adult Aspirin Regimen) 81 mg PO DAILY [id number]-fqo-jihl-tja 600 mg calcium- 800 unit-50 mg 1 tab PO BEDTIME flaxseed oil ([place]-3 Flaxseed Oil) 1,000 mg PO DAILY gabapentin 300 mg PO DAILY glipizide 10 mg PO BID levothyroxine 100 mcg PO DAILY losartan 100 mg PO DAILY metformin ER 1,000 mg PO BID metoprolol tartrate 50 mg PO BID rosuvastatin 40 mg PO DAILY HPI Comments Details: Karina comes for follow-up. She continues to have claudication left lower extremity has to stop after 50-100 yd because of cramping in her calf. She has appointment with vascular surgery tomorrow. She underwent a right orshtjf-xe-ohhzppxwa bypass as per and this is significantly improved her claudication in the right lower extremity. She also had a stent placement in the left iliac artery at the time of right lower extremity revascularization. No cardiac symptoms of angina. Unfortunately she continues to smoke. She is taking all her medications. No recent lipid panel. Blood pressure is generally been well controlled. [facility] Medical History Tobacco use Diabetes Hyperlipidemia HTN (hypertension) Carotid disease, bilateral PVD (peripheral vascular disease) CAD (coronary artery disease) Surgical History Status post bilateral carotid endarterectomy Stented coronary artery Review of Systems Const Denies chills, Denies fatigue, Denies fever(s), Denies frequent falls, Denies weakness, Denies weight gain and Denies weight loss ENT Denies dizziness Card Denies chest pain, Denies leg edema, Denies lightheadedness, Denies palpitations, Denies dyspnea, Denies dyspnea on exertion, Denies orthopnea and Denies other (loss of consciousness) Resp Denies cough, Denies dyspnea and Denies dyspnea on exertion GI Denies hematochezia and Denies change in stool character Musc Denies abnormal gait, Denies muscle weakness, Denies numbness, Denies radiating pain into limb and Denies tingling Neuro Denies Abnormal speech present, Denies abnormal gait, Denies dizziness, Denies frequent falls, Denies numbness, Denies tingling and Denies weakness Endo Denies fatigue and Denies palpitations Physical Exam Vital Signs: Last Vital Signs Pulse 67 06/27/24 15:05 BP 110/64 06/27/24 15:05 BMI result Body Mass Index 25.4 Const General: cooperative, comfortable, no acute distress, alert, awake and Physically active Nutritional Appearance: thin Orientation/consciousness: patient oriented x3 Limitations: no limitations HEENT Head: Yes normocephalic and Yes atraumatic Neck Neck: Yes trachea midline, Yes supple and Yes no JVD Carotids: bruit on the left Chest Chest palpation & inspection: normal inspection of the chest Resp Effort & Inspection: normal respiratory effort Auscultation: clear to auscultation bilaterally and diminished lung sounds Cardio Jugular venous distension: no JVD Palpation: normal PMI Rate: regular rate Rhythm: regular rhythm Heart sounds: S1 normal heart sound present, S2 normal heart sound present, no click, no gallops, Murmur heart sound present systolic early and no rubs Peripheral pulses: other (Absent distal pulses) GI Auscultation: normal bowel sounds Skin General skin exam: no rashes or lesions noted Neuro General: patient oriented x3 and no focal motor deficits Speech: No Abnormal speech present Extrem General: Yes no clubbing, cyanosis or edema Office Procedures EKG Details: EKG shows normal sinus rhythm with low-voltage QRS with poor R-wave progression most likely lead placement [id number], Complete Assessment & Plan Assessment & Plan (1) CAD (coronary artery disease): Code(s): I25.10 - Atherosclerotic heart disease of [place] coronary artery without angina pectoris Category: Medical Plan: Coronary artery disease status post remote stenting of RCA with no recurrent symptoms suggestive of angina, currently limited by claudication symptoms on left lower extremity. She has a follow with vascular surgery tomorrow. Unfortunately she was significant and diffuse vascular disease and continues smoke. We discussed about various strategies but she says that she has tried everything in the past and nothing seems to help. Needs continued aggressive risk factor modification. Continue high-intensity statin therapy. Advised lipid panel in near future. Target goal LDL closer to 60 mg/dL. Consider low- dose oral anticoagulation therapy with Xarelto based on multiple studies to reduce limb loss events as well as neurologic and cardiovascular events. Currently blood pressure is well optimized. Continue aggressive diabetes management goal hemoglobin A1c less than 7%. Consider GLP 1 antagonist given her diffuse atherosclerotic disease. Continue aspirin therapy. Consider cilostazol therapy given her symptoms of claudication to improve walking distance. Will follow up in the clinic in 1 year's time, sooner p.r.n.. Thank you for allowing me to partake in her care Coding Level of Care Code Est Pt Level 4 (90771) Complex EM visit Add On G2211 Diagnoses CAD (coronary artery disease) I25.10 CPT Codes EKG - CPT: 49936-[id number], Complete ([id number])
[2024-06-27 15:05] VITALS: BP 110/64; PULSE 67; BMI 25.4
== END 2024-06-27 15:27 | disposition home or self-care (01) ==
PROVIDERS: PCP Internal Medicine; Visit Provider Internal Medicine Cardiovascular Disease
DX: I25.10 Atherosclerotic heart disease of native coronary artery without angina pectoris (principal)
CPT/HCPCS: 93010; 99214; G2211

== ENCOUNTER → 2024-06-27 14:46 | Outpatient (BNVA) | payer MEDICARE, SELFPAY | PROVIDERS: PCP Internal Medicine; Visit Provider Internal Medicine Cardiovascular Disease | DX: I25.10 Atherosclerotic heart disease of native coronary artery without angina pectoris (principal); I10 Essential (primary) hypertension; Z95.5 Presence of coronary angioplasty implant and graft | CPT/HCPCS: 93005; 99212 ==

== ENCOUNTER 2024-07-15 07:48 | Outpatient (REF) | payer MEDICARE, SELFPAY ==
[2024-07-15 11:12] LABS: MANUAL DIFF FLAG NO
[2024-07-15 11:16] LABS: Basophils Percent Auto 0.6 % (0-2); Eosinophils Absolute Auto 0.1 X10*3/uL (0.0-0.4); Eosinophils Percent Auto 1.8 % (0-4); Hematocrit 40.1 % (37.0-47.0); Hemoglobin 13.4 g/dl (12.0-16.0); Imm Gran Abs Auto 0.03 X10*3/uL (0.00-0.03); Imm Gran Pct Auto 0.6 % (0.0-0.4); Lymphocytes Percent Auto 19.5 % (20-40); Mean Corpuscular HGB Conc 33.4 g/dl (31.0-35.0); Mean Corpuscular Hemoglobin 30.3 pg (27.0-33.0); Mean Corpuscular Volume 90.7 fL (80.0-98.0); Mean Platelet Volume 11.4 fL (9.4-12.3); Monocytes Absolute Auto 0.5 X10*3/uL (0.1-1.2); Monocytes Percent Auto 9.5 % (2-11); Neutrophils Absolute Auto 3.4 x10*3/uL (2.0-8.3); Platelet Count 136 X10*3/uL (160-400); Red Blood Count 4.42 X10*6/uL (4.20-5.50)
[2024-07-15 11:38] LABS: Estimated Average Glucose 189 mg/dL; Hemoglobin A1C 223.9389 umol/L; Hemoglobin A1c % 8.2 % (<6.0); Total Hemoglobin (HGBA1C) 3414.9334 umol/L
[2024-07-15 12:02] LABS: Alanine Aminotransferase 35 U/L (0-31); Albumin Level 4.2 g/dL (3.5-5.0); Alkaline Phosphatase 73 U/L (39-117); Anion Gap 13 (12-20); Aspartate Amino Transferase 31 U/L (5-31); Bilirubin Total 0.4 mg/dL (0.0-1.0); Blood Urea Nitrogen 18 mg/dL (9-16); Calcium 9.2 mg/dL (8.4-10.2); Carbon Dioxide 24 mmol/L (22-29); Chloride 105 mmol/L (96-108); Cholesterol 137 mg/dL (<200); Estimated Glomerular Filt Rate > 60; Glucose Fasting 240 mg/dL (60-99); HDL Cholesterol 49 mg/dL (>40); LDL Cholesterol Calculated 57 mg/dL (<100); Potassium 4.2 mmol/L (3.3-5.1); Sodium 138 mmol/L (135-145); Triglycerides 158 mg/dL (<150)
[2024-07-15 12:19] LABS: Free T4 (Free Thyroxine) 1.28 ng/dL (0.71-1.85); Thyroid Stimulating Hormone 1.59 uIU/mL (0.32-4.0)
[2024-07-15 12:27] LABS: Creatinine Urine 126.32 mg/dL; Microalbum/Creatinine Ratio Ur 42.7 ug/mg cr (<30)
== END 2024-07-15 07:49 | disposition home or self-care (01) ==
LOC: HO.HMGCLDS 07:48
PROVIDERS: PCP Internal Medicine; Visit Provider Internal Medicine
DX: E11.9 Type 2 diabetes mellitus without complications (principal); E78.00 Pure hypercholesterolemia, unspecified; J44.9 Chronic obstructive pulmonary disease, unspecified; E03.9 Hypothyroidism, unspecified
CPT/HCPCS: 36415; 80053; 80061; 82043; 82570; 83036; 84439; 84443; 85025

== ENCOUNTER 2024-10-27 10:42 | Outpatient (AMB) | payer MEDICARE, SELFPAY ==
[2024-10-27 10:53] VITALS: BP 122/70; PULSE 80; RESP 14; TEMP 36.4; O2SAT 96; BMI 25.3
--- NOTE | 2024-10-27 10:53 | A.OFFPC_ITS ---
Vital Signs 10/27/24 10:53 Height 5 ft 3 in Weight 143 lb BMI 25.3 BP 122/70 Respiration 14 Pulse 80 Pulse Source Pulse Oximeter Temp 97.6 F Temp Source Temporal Artery Scan Pulse Oximetry (%) 96 Oxygen Delivery Method Room Air Intake Visit Reasons: Routine Dredge Pumper Required: No Accompanied by: Self / Same As Patient Allergies No Known Allergies [No Known Allergies*] Allergy (Verified 10/27/24 10:53) Tobacco use date assessed: 10/27/24 Fall risk assessment: No Falls in past year Last assessed Fall Risk: 10/27/24 Dental Screening Dental Screen Date: 10/27/24 Did you have a dental visit in the last 12 months?: Yes Did you have a dental problem in the last 6 months where you did not have access to dental care?: No HPI HPI Comments History of Present Illness Details The patient is a 78 year old female with a past medical history of CAD, PAD, htn, hld, , NIDDM, COPD, hypothyroid, osteopenia. Last seen by pcp in Jul CV: Follows with cardiology. Has seen vascular-history of right femoral-to- popliteal bypass and stent placement, Denies chest pain. DM: On metformin 1000mg twice daily, januvia, glipizide. Last A1C 8.2%. Has not been dietary compliant. Hypothyroid: on levothyryoxine Rsp: increased coughing for the last few weeks. Denies fevers. Endorses slightly increased fatigue Mammo 11/23 ROS see HPI PHYSICAL EXAM: GENERAL: Alert and oriented x 3. NAD EYES: EOMI. Anicteric. HENT: Moist mucous membranes. No scleral icterus. No cervical lymphadenopathy. LUNGS: left posterior lower coarse rhonci CARDIOVASCULAR: Regular rate and rhythm. + murmur. No JVD. ABDOMEN: Soft, non-tender +bs EXTREMITIES: No edema. Non-tender. SKIN: No rashes or lesions. Warm. NEUROLOGIC: No focal neurological deficits. CN II-XII grossly intact PSYCHIATRIC: Cooperative. Appropriate mood and affect [facility] Medical History Tobacco use Diabetes Hyperlipidemia HTN (hypertension) Carotid disease, bilateral PVD (peripheral vascular disease) CAD (coronary artery disease) Surgical History Status post bilateral carotid endarterectomy Stented coronary artery Family History Father Heart disease Mother Diabetes Heart disease Cancer Social History Housing: House Alcohol intake: current Alcohol intake frequency: a few times a week Alcohol type: wine Patient Tobacco Use Status: Current everyday Tobacco user Cigarettes Per Day: 10 service: No Current occupational status: retired Cognitive needs: No Hearing needs: No Vision needs: Yes (reading glasses) Questionnaire PHQ-9 Over the last 2 weeks, how often have you been bothered by any of the following problems? 1. Little interest or pleasure in doing things: not at all 2. Feeling down, depressed, or hopeless: not at all 3. Trouble falling or staying asleep, or sleeping too much: not at all 4. Feeling tired or having little energy: not at all 5. Poor appetite or overeating: not at all 6. Feeling bad about yourself - or that you are a failure or have let yourself or your family down: not at all 7. Trouble concentrating on things, such as reading the newspaper or watching television: not at all 8. Moving or speaking so slowly that other people could have noticed. Or the opposite - being so fidgety or restless that you have been moving around a lot more than usual: not at all 9. Thoughts that you would be better off or of hurting yourself in some way: not at all Total score: 0 Depression Screening Interpretation: Negative Depression Screening Done: Yes 59081 - PHQ-9 Billing: Yes Source: Developed by Drs. Jeffery Sun, Juanita Timmons, Vinay Dean and colleagues, with an educational kelsey from [employer]. Thrive Questionnaire Date Thrive assessed: 10/27/24 I am a: Patient What is your living situation today?: I have a steady place to live Within the past 12 months, did the food you bought not last and you didn't have the money to get more?: Never true Within the past 12 months, did you worry whether your food would run out before you got money to buy more?: Never true Do you have trouble paying for medicines?: No Do you have trouble getting transportation to medical appointments?: No Do you have trouble paying your heating and electricity bill?: No Do you have trouble taking care of your child, family member or friend?: No Do you have trouble with day-to-day activities such as bathing, preparing meals, shopping, managing finances, etc.?: No Are you currently unemployed and looking for a job?: No Are you interested in more education?: No Please select the resources that you would like help with: None THRIVE Score: 0 AUDIT C Alcohol Use Questionnaire (AUDIT-C) 1. How often do you have a drink containing alcohol?: 2-3 times a week 2. How many drinks containing alcohol do you have on a typical day when you are drinking?: 1 or 2 3. How often do you have six or more drinks on one occasion?: Never Total Score: 3 DARIN-7 AMB Questionnaire DARIN-7 Date DARIN - 7 assessed: 10/27/24 Feeling nervous, anxious, or on edge: 0 = Not at all Not being able to stop or control worryin = Not at all Worrying too much about different things: 0 = Not at all Trouble relaxin = Not at all Being so restless that it is hard to sit still: 0 = Not at all Becoming easily annoyed or irritable: 0 = Not at all Feeling afraid as if something awful might happen: 0 = Not at all Total DARIN-7 score (0-4 normal; 5-9 mild; 10-14 moderate; 15-21 severe): 0 Source: Developed by Drs. Jeffery Sun, Juanita Timmons, Vinay Dean and colleagues, with an educational kelsey from [employer]. Physical exam (Primary Care) Vital Signs: Last Vital Signs Temp 97.6 F 10/27/24 10:53 Pulse 80 10/27/24 10:53 Resp 14 10/27/24 10:53 BP 122/70 10/27/24 10:53 Pulse Ox 96 10/27/24 10:53 Oxygen Delivery Method Room Air 10/27/24 10:53 BMI result Body Mass Index 25.3 Tobacco/Smoking Status: Tobacco use Status Tobacco use date assessed 10/27/24 10/27/24 11:05 Patient Tobacco Use Status Current everyday Tobacco 10/27/24 11:05 PHQ-9: PHQ-9 Score PHQ-9: Total score 0 10/28/24 14:17 Depression Screening Interpretation: Negative Thrive Assessment: Date of Thrive Assessment Date Thrive assessed 10/27/24 10/27/24 11:05 Coding Level of Care Code New Pt Level 4 (33302) Complex EM visit Add On G2211 Diagnoses Type 2 diabetes mellitus with hyperglycemia, without long-term current use of insulin E11.65 Diabetes mellitus type: type 2 Diabetes mellitus watcher automat long goods insulin use: without watcher automat long goods use Diabetes mellitus complication status: with hyperglycemia Primary hypertension I10 Hypertension type: primary hypertension Hyperlipidemia, unspecified hyperlipidemia type E78.5 Hyperlipidemia type: unspecified Additional Codes PHQ-9 - 08734 - PHQ-9 Billing: Yes ([id number]) Assessment & Plan Assessment & Plan (1) Diabetes: Code(s): E11.9 - Type 2 diabetes mellitus without complications Category: Medical Qualifiers: Diabetes mellitus type: type 2 Diabetes mellitus watcher automat long goods insulin use: without watcher automat long goods use Diabetes mellitus complication status: with hyperglycemia Qualified Code(s): E11.65 - Type 2 diabetes mellitus with hyperglycemia (2) HTN (hypertension): Code(s): I10 - Essential (primary) hypertension Category: Medical Qualifiers: Hypertension type: primary hypertension Qualified Code(s): I10 - Essential (primary) hypertension (3) Hyperlipidemia: Code(s): E78.5 - Hyperlipidemia, unspecified Category: Medical Qualifiers: Hyperlipidemia type: unspecified Qualified Code(s): E78.5 - Hyperlipidemia, unspecified Plan 78 y/o to establish care. Past medical, surgical, social and family history reviewed. Last A1C uncontrolled. Due for labs. Medication changes pending results CV-controlled BP. Follows with vascular Orders: Orders TSH reflex Free T4 10/28/24 E11.9 - Type 2 diabetes mellitus without complications, E78.5 - Hyperlipidemia, unspecified, I10 - Essential (primary) hypertension, I25.10 - Atherosclerotic heart disease of [place] coronary artery without angina pectoris Complete Blood Count Auto Diff 10/28/24 E11.9 - Type 2 diabetes mellitus without complications, E78.5 - Hyperlipidemia, unspecified, I10 - Essential (primary) hypertension, I25.10 - Atherosclerotic heart disease of [place] coronary artery without angina pectoris Lipid Panel 10/28/24 E11.9 - Type 2 diabetes mellitus without complications, E78.5 - Hyperlipidemia, unspecified, I10 - Essential (primary) hypertension, I25.10 - Atherosclerotic heart disease of [place] coronary artery without angina pectoris Comprehensive Met. Panel 10/28/24 E11.9 - Type 2 diabetes mellitus without complications Hemoglobin A1c 10/28/24 E11.9 - Type 2 diabetes mellitus without complications, E78.5 - Hyperlipidemia, unspecified, I10 - Essential (primary) hypertension, I25.10 - Atherosclerotic heart disease of [place] coronary artery without angina pectoris Comprehensive Met. Panel 10/28/24 E11.9 - Type 2 diabetes mellitus without complications, E78.5 - Hyperlipidemia, unspecified, I10 - Essential (primary) hypertension, I25.10 - Atherosclerotic heart disease of [place] coronary artery without angina pectoris Microalbumin, Random (w Creat) 10/28/24 E11.9 - Type 2 diabetes mellitus without complications, E78.5 - Hyperlipidemia, unspecified, I10 - Essential (primary) hypertension, I25.10 - Atherosclerotic heart disease of [place] coronary artery without angina pectoris Hemoglobin A1c 10/28/24 E11.9 - Type 2 diabetes mellitus without complications Medications: New rosuvastatin 40 mg PO DAILY 90 tabs 3RF Januvia (sitagliptin phosphate) 100 mg PO DAILY 90 tabs 3RF NS E11.9 - Type 2 diabetes mellitus without complications metformin ER 1,000 mg (2 x 500 mg) PO BID 180 tabs 3RF losartan 100 mg PO DAILY 90 tabs 3RF glipizide 10 mg PO BID 180 tabs 3RF metoprolol tartrate 50 mg PO BID 180 tabs 3RF gabapentin 300 mg PO DAILY 90 caps 3RF doxycycline hyclate 100 mg PO BID 20 tabs 0RF levothyroxine 100 mcg PO DAILY 90 tabs 3RF prednisone 40 mg (2 x 20 mg) PO DAILY 6 tabs 0RF
== END 2024-10-27 11:25 | disposition home or self-care (01) ==
LOC: HO.HMCHD 10:43
PROVIDERS: PCP Internal Medicine; Visit Provider Internal Medicine
DX: E11.65 Type 2 diabetes mellitus with hyperglycemia (principal); I10 Essential (primary) hypertension; E78.5 Hyperlipidemia, unspecified

== ENCOUNTER → 2024-10-27 10:42 | Outpatient (BNVA) | payer MEDICARE, SELFPAY | PROVIDERS: PCP Internal Medicine; Visit Provider Internal Medicine | DX: E11.65 Type 2 diabetes mellitus with hyperglycemia (principal); I10 Essential (primary) hypertension; E78.5 Hyperlipidemia, unspecified; I25.10 Atherosclerotic heart disease of native coronary artery without angina pectoris; J44.9 Chronic obstructive pulmonary disease, unspecified; I73.9 Peripheral vascular disease, unspecified; E03.9 Hypothyroidism, unspecified; M85.80 Other specified disorders of bone density and structure, unspecified site; Z79.84 Long term (current) use of oral hypoglycemic drugs; Z79.899 Other long term (current) drug therapy | CPT/HCPCS: 96127; 99202 ==

== ENCOUNTER 2024-10-28 07:21 | Outpatient (REF) | payer MEDICARE, SELFPAY ==
[2024-10-28 11:44] LABS: MANUAL DIFF FLAG NO
[2024-10-28 11:50] LABS: Basophils Percent Auto 0.6 % (0-2); Eosinophils Absolute Auto 0.1 X10*3/uL (0.0-0.4); Eosinophils Percent Auto 1.1 % (0-4); Hematocrit 40.8 % (37.0-47.0); Hemoglobin 13.5 g/dl (12.0-16.0); Imm Gran Abs Auto 0.04 X10*3/uL (0.00-0.03); Imm Gran Pct Auto 0.6 % (0.0-0.4); Lymphocytes Absolute Auto 0.9 X10*3/uL (1.2-4.9); Lymphocytes Percent Auto 14.2 % (20-40); Mean Corpuscular HGB Conc 33.1 g/dl (31.0-35.0); Mean Corpuscular Hemoglobin 30.2 pg (27.0-33.0); Mean Corpuscular Volume 91.3 fL (80.0-98.0); Mean Platelet Volume 11.6 fL (9.4-12.3); Monocytes Absolute Auto 0.5 X10*3/uL (0.1-1.2); Monocytes Percent Auto 7.7 % (2-11); Neutrophils Absolute Auto 4.7 x10*3/uL (2.0-8.3); Neutrophils Percent Auto 75.8 % (45-73); Platelet Count 134 X10*3/uL (160-400); Red Blood Count 4.47 X10*6/uL (4.20-5.50); Red Cell Distribution Width 12.6 % (11.0-16.0); White Blood Count 6.2 X10*3/uL (4.8-10.8)
[2024-10-28 11:59] LABS: Estimated Average Glucose 200 mg/dL; Hemoglobin A1c % 8.6 % (<6.0)
[2024-10-28 12:12] LABS: Creatinine Urine 150.22 mg/dL; Microalbum/Creatinine Ratio Ur 151.7 ug/mg cr (<30)
[2024-10-28 12:20] LABS: Alanine Aminotransferase 33 U/L (0-31); Albumin Level 4.1 g/dL (3.5-5.0); Alkaline Phosphatase 76 U/L (39-117); Anion Gap 11 (12-20); Aspartate Amino Transferase 29 U/L (5-31); Bilirubin Total 0.4 mg/dL (0.0-1.0); Blood Urea Nitrogen 18 mg/dL (9-16); Calcium 9.2 mg/dL (8.4-10.2); Carbon Dioxide 25 mmol/L (22-29); Chloride 108 mmol/L (96-108); Cholesterol 123 mg/dL (<200); Estimated Glomerular Filt Rate > 60; Glucose Random 257 mg/dL (60-115); HDL Cholesterol 43 mg/dL (>40); LDL Cholesterol Calculated 58 mg/dL (<100); Potassium 4.2 mmol/L (3.3-5.1); Sodium 140 mmol/L (135-145); Total Protein 6.9 g/dL (6.5-8.0); Triglycerides 112 mg/dL (<150)
[2024-10-28 12:46] LABS: TSH reflex Free T4 1.13 uIU/mL (0.32-4.0)
== END 2024-10-28 07:22 | disposition home or self-care (01) ==
LOC: HO.HMGCLDS 07:21
PROVIDERS: PCP Internal Medicine; Visit Provider Internal Medicine
DX: E11.9 Type 2 diabetes mellitus without complications (principal); I10 Essential (primary) hypertension; E78.5 Hyperlipidemia, unspecified; I25.10 Atherosclerotic heart disease of native coronary artery without angina pectoris
CPT/HCPCS: 36415; 80053; 80061; 82043; 82570; 83036; 84443; 85025

== ENCOUNTER → 2024-11-13 08:30 | Outpatient (BNV) | payer MEDICARE, SELFPAY | PROVIDERS: PCP Internal Medicine; Visit Provider Internal Medicine | DX: Z12.31 Encounter for screening mammogram for malignant neoplasm of breast (principal) | CPT/HCPCS: 77063; 77067 ==

== ENCOUNTER 2024-11-13 08:34 | Outpatient (REF) | payer MEDICARE, SELFPAY | END 2024-11-13 08:35 | disposition home or self-care (01) | LOC: HO.MAMMO 08:34 | PROVIDERS: PCP Internal Medicine; Visit Provider Internal Medicine | DX: Z12.31 Encounter for screening mammogram for malignant neoplasm of breast (principal) | CPT/HCPCS: 77063; 77067 ==

== ENCOUNTER 2025-01-18 08:50 | Outpatient (AMB) | payer MEDICARE, SELFPAY ==
[2025-01-18 08:52] VITALS: BP 118/70; PULSE 69; TEMP 36.6; O2SAT 98; BMI 24.3
--- NOTE | 2025-01-18 08:52 | MHC.PC.OV ---
Vital Signs 01/18/25 08:52 Height 5 ft 3 in Weight 137 lb BMI 24.3 BP 118/70 Blood Pressure Location Lt brachial Position Sitting Pulse 69 Pulse Source Pulse Oximeter Temp 98 F Temp Source Axillary Pulse Oximetry (%) 98 Oxygen Delivery Method Room Air Intake Visit Reasons: 3 Month F/U - see comments Box Toe Cementer Required: No Accompanied by: Self / Same As Patient Allergies No Known Allergies (No Known Allergies*) Allergy (Verified 01/18/25 08:52) Tobacco use date assessed: 01/18/25 Fall risk assessment: No Falls in past year Last assessed Fall Risk: 01/18/25 Dental Screening Dental Screen Date: 01/18/25 Did you have a dental visit in the last 12 months?: Yes Did you have a dental problem in the last 6 months where you did not have access to dental care?: No HPI HPI Comments History of Present Illness Details The patient is a 79 year old female with a past medical history of CAD, PAD, htn, hld, , NIDDM, COPD, hypothyroid, osteopenia presenting for diabetic follow up CV: Follows with cardiology. Has seen vascular-history of right wosseje-tl-[id number] bypass and stent placement, Denies chest pain. DM: On metformin 1000mg twice daily, januvia, glipizide. Last A1C 8.6%. Was ordered actos, did not pick it up. Has been on a very low carb diet instead. Hypothyroid: on levothyryoxine Mammo 11/23 Declines colonoscopy and cologuard ROS see HPI PHYSICAL EXAM: GENERAL: Alert and oriented x 3. NAD EYES: EOMI. Anicteric. HENT: Moist mucous membranes. No scleral icterus. No cervical lymphadenopathy. LUNGS: left posterior lower coarse rhonci CARDIOVASCULAR: Regular rate and rhythm. + murmur. No JVD. ABDOMEN: Soft, non-tender +bs EXTREMITIES: No edema. Non-tender. SKIN: No rashes or lesions. Warm. NEUROLOGIC: No focal neurological deficits. CN II-XII grossly intact PSYCHIATRIC: Cooperative. Appropriate mood and affect [facility] Medical History Tobacco use Diabetes Hyperlipidemia HTN (hypertension) Carotid disease, bilateral PVD (peripheral vascular disease) CAD (coronary artery disease) Surgical History Status post bilateral carotid endarterectomy Stented coronary artery Family History Father Heart disease Mother Diabetes Heart disease Cancer Social History Housing: House Alcohol intake: current Alcohol intake frequency: a few times a week Alcohol type: wine Patient Tobacco Use Status: Current everyday Tobacco user Cigarettes Per Day: 10 e-Cigarette/Vaping Use: Currently Using service: No Current occupational status: retired Cognitive needs: No Hearing needs: No Vision needs: Yes (reading glasses) Questionnaire PHQ-9 Over the last 2 weeks, how often have you been bothered by any of the following problems? 1. Little interest or pleasure in doing things: not at all 2. Feeling down, depressed, or hopeless: not at all 3. Trouble falling or staying asleep, or sleeping too much: not at all 4. Feeling tired or having little energy: not at all 5. Poor appetite or overeating: not at all 6. Feeling bad about yourself - or that you are a failure or have let yourself or your family down: not at all 7. Trouble concentrating on things, such as reading the newspaper or watching television: not at all 8. Moving or speaking so slowly that other people could have noticed. Or the opposite - being so fidgety or restless that you have been moving around a lot more than usual: not at all 9. Thoughts that you would be better off or of hurting yourself in some way: not at all Total score: 0 Depression Screening Interpretation: Negative Depression Screening Done: Yes 20484 - PHQ-9 Billing: Yes Source: Developed by Drs. Jeffery Sun, Juanita Timmons, Vinay Dean and colleagues, with an educational kelsey from [facility]. Thrive Questionnaire Date Thrive assessed: 01/18/25 I am a: Patient Within the past 12 months, did the food you bought not last and you didn't have the money to get more?: Never true Within the past 12 months, did you worry whether your food would run out before you got money to buy more?: Never true Do you have trouble paying for medicines?: No Do you have trouble getting transportation to medical appointments?: No Do you have trouble paying your heating and electricity bill?: No Do you have trouble taking care of your child, family member or friend?: No Do you have trouble with day-to-day activities such as bathing, preparing meals, shopping, managing finances, etc.?: No Are you currently unemployed and looking for a job?: No Are you interested in more education?: No THRIVE Score: 0 AUDIT C Alcohol Use Questionnaire (AUDIT-C) 1. How often do you have a drink containing alcohol?: Monthly or less 2. How many drinks containing alcohol do you have on a typical day when you are drinking?: 1 or 2 3. How often do you have six or more drinks on one occasion?: Less than monthly Total Score: 2 DARIN-7 AMB Questionnaire DARIN-7 Date DARIN - 7 assessed: 01/18/25 Feeling nervous, anxious, or on edge: 0 = Not at all Not being able to stop or control worryin = Not at all Worrying too much about different things: 0 = Not at all Trouble relaxin = Not at all Being so restless that it is hard to sit still: 0 = Not at all Becoming easily annoyed or irritable: 0 = Not at all Feeling afraid as if something awful might happen: 0 = Not at all Total DARIN-7 score (0-4 normal; 5-9 mild; 10-14 moderate; 15-21 severe): 0 Source: Developed by Drs. Jeffery Sun, Juanita Timmons, Vinay Dean and colleagues, with an educational kelsey from [facility]. Physical exam (Primary Care) Vital Signs: Last Vital Signs Temp 98 F 01/18/25 08:52 Pulse 69 01/18/25 08:52 BP 118/70 01/18/25 08:52 Pulse Ox 98 01/18/25 08:52 Oxygen Delivery Method Room Air 01/18/25 08:52 BMI result Body Mass Index 24.3 Tobacco/Smoking Status: Tobacco use Status Tobacco use date assessed 01/18/25 01/18/25 08:54 Patient Tobacco Use Status Current everyday Tobacco 01/18/25 08:54 e-Cigarette/Vaping Use Currently Using 01/18/25 08:54 PHQ-9: PHQ-9 Score PHQ-9: Total score 0 01/18/25 08:54 Depression Screening Interpretation: Negative Thrive Assessment: Date of Thrive Assessment Date Thrive assessed 01/18/25 01/18/25 08:54 Coding Level of Care Code Est Pt Level 4 (61244) Complex EM visit Add On G2211 Diagnoses Type 2 diabetes mellitus with hyperglycemia, without long-term current use of insulin E11.65 Diabetes mellitus type: type 2 Diabetes mellitus intermediate insulin use: without wireless construction manager use Diabetes mellitus complication status: with hyperglycemia Primary hypertension I10 Hypertension type: primary hypertension PVD (peripheral vascular disease) I73.9 Additional Codes PHQ-9 - 50304 - PHQ-9 Billing: Yes ([id number]) Assessment & Plan Assessment & Plan (1) Diabetes: Code(s): E11.9 - Type 2 diabetes mellitus without complications Category: Medical Qualifiers: Diabetes mellitus type: type 2 Diabetes mellitus wireless construction manager insulin use: without wireless construction manager use Diabetes mellitus complication status: with hyperglycemia Qualified Code(s): E11.65 - Type 2 diabetes mellitus with hyperglycemia (2) HTN (hypertension): Code(s): I10 - Essential (primary) hypertension Category: Medical Qualifiers: Hypertension type: primary hypertension Qualified Code(s): I10 - Essential (primary) hypertension (3) PVD (peripheral vascular disease): Code(s): I73.9 - Peripheral vascular disease, unspecified Category: Medical Plan Diabetes-A1C today. She has improved dietary compliance. Will add actos if above 8% HTN is well controlled on current medications PAD is stable. Lipids controlled Orders: Orders Comprehensive Met. Panel Today E11.65 - Type 2 diabetes mellitus with hyperglycemia Hemoglobin A1c Today E11.65 - Type 2 diabetes mellitus with hyperglycemia
== END 2025-01-18 09:10 | disposition home or self-care (01) ==
LOC: HO.HMCHD 08:51
PROVIDERS: PCP Internal Medicine; Visit Provider Internal Medicine
DX: E11.65 Type 2 diabetes mellitus with hyperglycemia (principal); I10 Essential (primary) hypertension; I73.9 Peripheral vascular disease, unspecified

== ENCOUNTER → 2025-01-18 08:50 | Outpatient (BNVA) | payer MEDICARE, SELFPAY | PROVIDERS: PCP Internal Medicine; Visit Provider Internal Medicine | DX: E11.65 Type 2 diabetes mellitus with hyperglycemia (principal); I10 Essential (primary) hypertension; I73.9 Peripheral vascular disease, unspecified; E03.9 Hypothyroidism, unspecified; J44.9 Chronic obstructive pulmonary disease, unspecified; I25.10 Atherosclerotic heart disease of native coronary artery without angina pectoris; Z79.84 Long term (current) use of oral hypoglycemic drugs; Z79.899 Other long term (current) drug therapy; Z13.31 Encounter for screening for depression; Z13.30 Encounter for screening examination for mental health and behavioral disorders, unspecified | CPT/HCPCS: 96127; 99212 ==

== ENCOUNTER 2025-01-18 09:13 | Outpatient (REF) | payer MEDICARE, SELFPAY ==
[2025-01-18 10:52] LABS: Estimated Average Glucose 163 mg/dL; Hemoglobin A1c % 7.3 % (<6.0)
[2025-01-18 11:33] LABS: Alanine Aminotransferase 30 U/L (0-31); Albumin Level 4.8 g/dL (3.5-5.0); Alkaline Phosphatase 56 U/L (39-117); Anion Gap 15 (12-20); Aspartate Amino Transferase 35 U/L (5-31); Bilirubin Total 0.5 mg/dL (0.0-1.0); Blood Urea Nitrogen 23 mg/dL (9-16); Calcium 9.8 mg/dL (8.4-10.2); Carbon Dioxide 25 mmol/L (22-29); Chloride 106 mmol/L (96-108); Estimated Glomerular Filt Rate > 60; Glucose Random 234 mg/dL (60-115); Potassium 4.6 mmol/L (3.3-5.1); Sodium 141 mmol/L (135-145); Total Protein 7.4 g/dL (6.5-8.0)
== END 2025-01-18 09:14 | disposition home or self-care (01) ==
LOC: HO.10HDL 09:13
PROVIDERS: Visit Provider Internal Medicine
DX: E11.65 Type 2 diabetes mellitus with hyperglycemia (principal)
CPT/HCPCS: 36415; 80053; 83036

== ENCOUNTER 2025-04-20 09:08 | Outpatient (AMB) | payer MEDICARE, SELFPAY ==
--- NOTE | 2025-04-20 09:00 | MHC.PC.OV ---
Vital Signs 04/20/25 09:17 Height 5 ft 3 in Weight 139 lb BMI 24.6 BP 90/68 Blood Pressure Location Lt brachial Position Sitting Respiration 18 Pulse 76 Pulse Source Pulse Oximeter Temp 97.7 F Temp Source Temporal Artery Scan Pulse Oximetry (%) 97 Oxygen Delivery Method Room Air Intake Visit Reasons: 3 Month F/U Dope Dry House Operator Required: No Accompanied by: Self / Same As Patient Allergies No Known Allergies (No Known Allergies*) Allergy (Verified 04/20/25 09:00) Tobacco use date assessed: 01/18/25 Fall risk assessment: 1 Fall in past year Last assessed Fall Risk: 04/20/25 Dental Screening Dental Screen Date: 04/20/25 Did you have a dental visit in the last 12 months?: Yes Did you have a dental problem in the last 6 months where you did not have access to dental care?: No Was dental information given to patient?: Patient has dentist HPI HPI Comments History of Present Illness Details The patient is a 79-year-old female presenting with chronic conditions including Type 2 Diabetes Mellitus, Essential Hypertension, and Peripheral Vascular Disease. The diabetes was previously managed with a regimen of Januvia 100 mg daily, Glipizide 10 mg twice daily, and Metformin 1000 mg twice daily. The patient's Hemoglobin A1c had improved following a no-sugar diet, achieving a level of 7.3, but there is a recent concern for possible elevation since dietary restrictions were relaxed. She is on Losartan and Metoprolol for hypertension, with the latter recently considered for dosage reduction due to hypotensive readings at 90/68 mmHg during the visit. The patient has a history of Peripheral Vascular Disease, with bypass surgery performed on the right leg. She has a significant smoking history of approximately 50 years, at close to a pack per day, which complicates her vascular condition. Medical History: - Type 2 Diabetes Mellitus - Essential Hypertension - Hypothyroidism - Peripheral Vascular Disease Surgical History: - Right leg bypass surgery Medications: - Januvia 100 mg daily for Type 2 Diabetes Mellitus - Glipizide 10 mg twice daily for Type 2 Diabetes Mellitus - Metformin 1000 mg twice daily for Type 2 Diabetes Mellitus - Losartan 100 mg for Essential Hypertension - Metoprolol 50 mg twice daily for Essential Hypertension - Levothyroxine 100 mcg for Hypothyroidism - Rosuvastatin for cholesterol management Diagnostic Results: - Labs: Hemoglobin A1c previously 7.3 (expecting reassessment today), TSH level checked in September was normal. Social: - Tobacco use: Smoking for approximately 50 years, close to a pack a day. - Physical activity: Engages in golfing and other activities. - Dietary habits: Previously followed a no-sugar diet. - Lifestyle: Maintains active lifestyle through sports and recreational activities. [facility] Medical History (Updated 04/20/25 @ 09:33 by Scott Nix MD) Hypothyroidism Tobacco use Diabetes Hyperlipidemia HTN (hypertension) Carotid disease, bilateral PVD (peripheral vascular disease) CAD (coronary artery disease) Surgical History Status post bilateral carotid endarterectomy Stented coronary artery Family History Father Heart disease Mother Diabetes Heart disease Cancer Social History Housing: House Alcohol intake: current Alcohol intake frequency: a few times a week Alcohol type: wine Patient Tobacco Use Status: Current everyday Tobacco user Cigarettes Per Day: 10 Years Smoked: 50 years Packs per year/per ci.00 e-Cigarette/Vaping Use: Never Used service: No Current occupational status: retired Cognitive needs: No Hearing needs: No Vision needs: Yes (reading glasses) Questionnaire Thrive Questionnaire Date Thrive assessed: 01/18/25 AUDIT C Alcohol Use Questionnaire (AUDIT-C) 1. How often do you have a drink containing alcohol?: 2-3 times a week 2. How many drinks containing alcohol do you have on a typical day when you are drinking?: 1 or 2 Total Score: 3 DARIN-7 AMB Questionnaire DARIN-7 Date DARIN - 7 assessed: 01/18/25 Source: Developed by Drs. Jeffery Sun, Juanita Timmons, Vinay Dean and colleagues, with an educational kelsey from [employer]. Review of Systems Const Details: - Endocrine: Reports adherence to diabetes medications but recent dietary indulgence. - Cardiovascular: Denies symptoms of palpitations, reports history of hypertension. - Vascular: Reports history of peripheral vascular disease with right leg bypass. - Neurological: Denies dizziness, though past hypotension was noted. - Social habits: Reports long-term smoking history. All systems reviewed & are unremarkable except as reviewed in HPI and above Physical exam (Primary Care) Vital Signs: Last Vital Signs Temp 97.7 F 04/20/25 09:17 Pulse 76 04/20/25 09:17 Resp 18 04/20/25 09:17 BP 90/68 04/20/25 09:17 Pulse Ox 97 04/20/25 09:17 Oxygen Delivery Method Room Air 04/20/25 09:17 BMI result Body Mass Index 24.6 Tobacco/Smoking Status: Tobacco use Status Tobacco use date assessed 01/18/25 04/20/25 09:01 Patient Tobacco Use Status Current everyday Tobacco 04/20/25 09:01 e-Cigarette/Vaping Use Never Used 04/20/25 09:20 Are you ready to quit: Yes Tobacco cessation counseling provided: Yes Relapse Prevention: discussed the importance of a supportive environment and discussed extending NRT Number of minutes spent counselin CPT code: 00331 - 4-10 Minutes Thrive Assessment: Date of Thrive Assessment Date Thrive assessed 01/18/25 04/20/25 09:01 Const Other: General: +Alert and oriented, Well nourished, No acute distress. Eye: Pupils are equal, round and reactive to light, Intact accommodation, Extraocular movements are intact, Normal conjunctiva, Vision unchanged. HENT: Normocephalic, Atraumatic, Tympanic membranes are clear, Normal hearing, Oral mucosa is moist, No pharyngeal erythema, Ear canals patent. Respiratory: Lungs CTA bilaterally, No wheeze, Respirations are non-labored. Cardiovascular: Regular rate, Regular rhythm, S1 auscultated, S2 auscultated, No murmur, Good pulses equal in all extremities, Normal peripheral perfusion, No edema. Blood pressure is 90/68, which is significantly low. Gastrointestinal: Soft, Non-tender, Non-distended, Normal bowel sounds, No organomegaly. Musculoskeletal: Normal range of motion, Normal strength, No tenderness, No swelling, No deformity, Normal gait. Integumentary: Warm, Dry, [place], Intact. Neurologic: Alert, Oriented, Normal sensory, Normal motor function, No focal defects, Cranial Nerves II-XII are grossly intact, Normal deep tendon reflexes. Psychiatric: Cooperative, Appropriate mood & affect, Normal judgment. Coding Level of Care Code Est Pt Level 4 (53604) Complex EM visit Add On G2211 Diagnoses Primary hypertension I10 Hypertension type: primary hypertension PVD (peripheral vascular disease) I73.9 Hyperlipidemia, unspecified hyperlipidemia type E78.5 Hyperlipidemia type: unspecified Type 2 diabetes mellitus with hyperglycemia, without long-term current use of insulin E11.65 Diabetes mellitus complication status: with hyperglycemia Diabetes mellitus terminal operator insulin use: without terminal operator use Diabetes mellitus type: type 2 Hypothyroidism, unspecified type E03.9 Hypothyroidism type: unspecified Additional Codes Vital Signs *Quality* - CPT code: 41290 - 4-10 Minutes ([id number]) Assessment & Plan Assessment & Plan (1) HTN (hypertension): Comment: - Reduce Metoprolol dosage from 50 mg to 25 mg twice daily due to hypotensive findings. - Monitor blood pressure readings at home. Code(s): I10 - Essential (primary) hypertension Category: Medical Qualifiers: Hypertension type: primary hypertension Qualified Code(s): I10 - Essential (primary) hypertension (2) PVD (peripheral vascular disease): Comment: - Communications Engineering Technician on smoking cessation due to its worsening impact on vascular health. - Continued follow up with vascular (Recently evaluated by vascular and completed studies on left) Code(s): I73.9 - Peripheral vascular disease, unspecified Category: Medical (3) Hyperlipidemia: Comment: Continue rosuvastatin We will repeat blood work in 6 months Code(s): E78.5 - Hyperlipidemia, unspecified Category: Medical Qualifiers: Hyperlipidemia type: unspecified Qualified Code(s): E78.5 - Hyperlipidemia, unspecified (4) Diabetes: Comment: Continue regimen of Januvia 100, glipizide 10 b.i.d. and metformin 1000 b.i.d. -had massive improvement in A1c from 8.4-7 on last blood work therefore we will repeat A1c today and evaluate Code(s): E11.9 - Type 2 diabetes mellitus without complications Category: Medical Qualifiers: Diabetes mellitus complication status: with hyperglycemia Diabetes mellitus terminal operator insulin use: without terminal operator use Diabetes mellitus type: type 2 Qualified Code(s): E11.65 - Type 2 diabetes mellitus with hyperglycemia (5) Hypothyroidism: Comment: - Check current TSH levels. - Maintain Levothyroxine at current dose pending lab results. Code(s): E03.9 - Hypothyroidism, unspecified Category: Medical Qualifiers: Hypothyroidism type: unspecified Qualified Code(s): E03.9 - Hypothyroidism, unspecified Plan: Health maintenance: - Discussed and advised on receiving COVID-19 vaccination due to underlying lung susceptibility secondary to smoking. Patient was informed and verbally consented to the use of an ambient scribe for clinic note documentation during this visit. Plan During the visit, we discussed the continuing management of the patient's Type 2 Diabetes Mellitus, Essential Hypertension, and Peripheral Vascular Disease. Emphasis was placed on dietary control and lifestyle modifications for diabetes management and the necessity of blood pressure monitoring due to recent hypotensive readings. The importance of smoking cessation was stressed given its significant exacerbation of the patient's peripheral vascular disease, and nicotine patches were recommended as a relapse prevention strategy. In anticipation of resuming thyroid function tests, lab results will guide further management of hypothyroidism. With her existing medical conditions, the patient was also encouraged to maintain regular vaccinations, particularly for COVID-19, to mitigate risk given her smoking history. Follow-up on these plans is crucial to optimize long-term outcomes. Orders: Orders TSH reflex Free T4 Today E03.9 - Hypothyroidism, unspecified Hemoglobin A1c Today E11.65 - Type 2 diabetes mellitus with hyperglycemia Medications: New metoprolol tartrate 25 mg PO BID 180 tabs 0RF 90 days nicotine 1 patch transdermal DAILY 28 ea 3RF Discontinued metoprolol tartrate Discontinued Reason: Doctor's Order 50 mg PO BID 180 tabs 3RF Patient Instructions: - Check your blood pressure at home regularly. - Take your Metoprolol at the new dose of 25 mg twice daily. - Follow your diabetes medication regimen as currently prescribed. - Use nicotine patches for smoking cessation and try to quit smoking. - Make an appointment for bloodwork including Hemoglobin A1c and TSH today. - Continue engaging in physical activity like golfing. - Consider receiving your COVID-19 vaccination.
[2025-04-20 09:17] VITALS: BP 90/68; PULSE 76; RESP 18; TEMP 36.5; O2SAT 97; BMI 24.6
--- OUTSIDE RECORDS SUMMARY | 2025-04-20 09:48 | XMS_ITS | Encounter Summary ---
Author Organization [facility] Address [address] [place] [id number] Phone Care Team Providers Care Tour Bus Driver/Guide Name Role Phone Eric Chase MD Primary Care Provider Reason for Referral * MRI/CAT Scan - Closed Specialty Diagnoses / Procedures Referred By Contneela t Referred To Contact Radiology Diagnoses Atherosclerosis of mentasta coronary artery of mentasta heart without angina pectoris Procedures NC Myocardial Perfusion Stress Single NC Myocardial Perfusion Pharmacologic Stress Multiple Adan Jameson MD Phone: tel: fax: [email or web address] Referral ID Status Reason Start Date Expiration Date Visits Re quested Visits Authorized [id number] Closed 08/31/2018 10/30/2018 1 1 Encounter Details Date Type Department Care Team (Latest Contact Info) Description 09/08/2018 Ancillary Orders [facility] [address] [facility] [address], [address] [place] [address] Adan Jameson MD [address] [place] [id number] [email or web address] Atherosclerosis of mentasta coronary artery of mentasta heart without angina pectoris Social History Tobacco Use Types Packs/Day Years Used Date Smoking Tobacco: Never Assessed Comments Unknown Sex and Gender Information Value Date Recorded Sex Assigned at Not on file Legal Sex Female 10:37 PM EDT Gender Identity Not on file Sexual Orientation Not on file documented as of this encounter Plan of Treatment Not on file documented as of this encounter Results * NC Myocardial Perfusion Stress Single (09/07/2018 9:16 AM EST) Nuc Stress EF 71 % LV Systolic Volume Index 22 mL/m2 LV Diastolic Volume Index 76 mL/m2 Anatomical Region Laterality Modality Heart Ultrasound Narrative 09/09/2018 12:07 PM EST Date of prior study: 12/17/2015 Normal study. There is no evidence of myocardial infarction or ischemia. Normal LV size and function with no regional wall motion abnormalities. Very low likelihood of hemodynamically significant coronary artery disease. Low risk study for myocardial events or cardiac in the next two years. Nuclear Study Quality Overall image quality is good. TYPE OF STUDY: Myocardial Perfusion Imaging after Regadenoson protocol with gated SPECT. PROTOCOL USED: One day stress protocol only in the supine and prone position. Images were obtained in gated tomographic technique. Images were processed in SPECT format, reconstructed tomographically and compared [id number] in short axis, horizontal long axis and vertical long axis. DOSE: Technetium 99m Sestamibi 12.2 mCi injected intravenously during stress on 09/07/2018 with post injection scan time of 45 minutes. . There are no artifacts present. Study was gated successfully.. Perfusion Defect The lung to heart ratio is 0.23. Response to Stress BMI: 26.98 Patient was unable to walk on TM due to claudication. The patient was infused with 0.4 mg of Regadenoson (Lexiscan) intravenously over 10 seconds followed immediately by the injection of the Tc99m Sestamibi. Patient tolerated infusion without complications. Test terminated due to completion of protocol. SUMMARY: 1. RESTING ECG: sinus tachycardia HR 116 bpm 2. EXERCISE ECG: No ischemic ECG changes with Lexiscan injection. 3. SYMPTOMS: Patient reported shortness of breath with Lexiscan injection that resolved spontaneously in early recovery. 4. PHYSIOLOGY: Appropriate physiologic response to Lexiscan injection. Resting HR 111 bpm thu to a max HR of 130 bpm. Resting O2 of 94% on RA improved to 97% with Lexiscan injection. Vital signs stable and returned to baseline prior to discharge from the lab. 5. ARRHYTHMIA: No ectopy noted. CONCLUSION: Normal ECG portion of pharmacologic nuclear stress test. No ECG changes suggestive of ischemia. Patient tolerated Lexiscan injection without complication. Nuclear images and report to follow. Elyse Evans PA-C . Stress Function Comments Post-stress ejection fraction was 71%. Stress end diastolic index: 76 mL/m2. Stress end systolic index: 22 mL/m2. Nuclear Prior Study There is a prior study available for comparison that was performed on 12/17/2015. Perfusion Scoring Stress Summed Score: 0 Percent Normal: 0.00% The left ventricular perfusion is normal. Procedure Note Yariel Preston MD / Chan Gallardo MD - 09/09/2018 Date of prior study: 12/17/2015 Normal study. There is no evidence of myocardial infarction or ischemia. Normal LV size and function with no regional wall motion abnormalities. Very low likelihood of hemodynamically significant coronary arterydisease. Low risk study for myocardial events or cardiac in the next twoyears. us Adan Jameson MD CV NM CARDIAC Final Result documented in this encounter Visit Diagnoses Diagnosis Atherosclerosis of mentasta coronary artery of [place] heart without angina pectoris Atherosclerosis of [place] coronary artery of [place] heart without angina pectoris documented in this encounter Care Teams Tour Bus Driver/Guide Relationship Specialty Start Date End Date Eric Chase MD [address] [place] [address] [place] [id number] PCP - General 05/20/17 documented as of this encounter Additional Source Comments The information contained in this document represents components of the legal health record. It is not the complete legal health record.[facility]
--- OUTSIDE RECORDS SUMMARY | 2025-04-20 09:48 | XMS_ITS | Clinical Summary ---
Author Organization [facility] Address [address] [place] [phone] Phone Care Team Providers Care Ssds Mk 2 Advanced Operator Name Role Phone rEic Cahse MD Primary Care Provider Allergies No known active allergies Medications calcium carbonate-vitamin D3 (CALCIUM 600 WITH VITAMIN D3) 600 mg(1,500mg) -500 unit Cap Orally Active levothyroxine (SYNTHROID, LEVOTHROID) 100 MCG tablet Take 1 tablet by mouth every morning. On an empty stomach Active glipiZIDE (GLUCOTROL) 5 MG tablet Take 10 mg by mouth 2 (two) times a day. Active magnesium oxide 400 mg Cap Take 1 capsule by mouth daily. with a meal Active metoprolol tartrate (LOPRESSOR) 50 MG tablet Take 1 tablet by mouth 2 (two) times a day. Active losartan (COZAAR) 50 MG tablet Take 100 mg by mouth daily. Active aspirin (ADULT LOW DOSE ASPIRIN) 81 MG EC tablet Take 1 tablet by mouth daily. Active metFORMIN (GLUCOPHAGE XR) 750 MG 24 hr tablet Take 750 mg by mouth 2 (two) times a day with meals. 1,000 bid Active gabapentin (NEURONTIN) 100 MG capsule Take 300 mg by mouth nightly at bedtime. Active rosuvastatin (CRESTOR) 40 MG tabletIndications:M ixed hyperlipidemia Take 1 tablet (40 mg total) by mouth daily. 90 tablet 3 1 Active SITagliptin (JANUVIA) 100 MG tablet Take 100 mg by mouth daily. 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 Continue to optimize cardiac risk factors. We reviewed the importance of smoking cessation, which she is working towards. Assessment & Plan (07/30/2020 8:48 AM EST): No angina at a relatively sedentary lifestyle. Assessment & Plan (01/23/2020 10:58 AM EDT): Asymptomatic at a reasonable level of activity. Assessment & Plan (07/19/2019 8:52 AM EST): No angina. Her increasing dyspnea is very likely due to her ongoing tobacco abuse but I have asked her to have an echocardiogram done to be sure that there is been no changes in left ventricular function. Her ECG today reveals a sinus rhythm in the 60s and there are no significant changes. Assessment & Plan (01/02/2019 8:46 AM EDT): Doing well on a cardiac basis. She follows up regularly with the vascular surgeons. Assessment & Plan (07/04/2018 8:40 AM EST): No clinical issues. If she is going to require peripheral bypass we may want to risk stratify with pharmacologic nuclear stress testing Assessment & Plan (12/06/2017 10:35 AM EDT): Doing well without symptoms. No medication changes. Mixed hyperlipidemia 12/03/2017 Assessment & Plan (07/30/2021 2:02 PM EST): She showed me a copy of a lipid panel drawn earlier this month by her PCP (had on her phone). All levels well controlled, aside from elevated triglycerides at around 200. She was not fasting for this lab drawn. Continue rosuvastatin at current dose. We reviewed the importance of a heart healthy diet and daily aerobic exercise. She has been trying to make mindful lifestyle adjustments, including decreasing daily cigarette consumption, and will continue to try to do so. Assessment & Plan (07/30/2020 8:49 AM EST): Lipids barely at goal. No changes. Assessment & Plan (01/23/2020 10:59 AM EDT): Recent profile shows an improved LDL to 56. Assessment & Plan (07/19/2019 8:52 AM EST): LDL in the 70s and HDL in the 50s. Renal and hepatic function remain normal. No changes. Assessment & Plan (01/02/2019 8:47 AM EDT): Remains on high-dose rosuvastatin. Labs were drawn at [place] but have yet to be forwarded. Assessment & Plan (07/04/2018 8:40 AM EST): Recent labs are fine with an LDL in the 70s. Assessment & Plan (12/06/2017 10:36 AM EDT): Recent labs include an LDL of 76 with HDL of 42 and triglycerides 226. Creatinine is normal at 0.8. Tobacco abuse 12/03/2017 Assessment & Plan (07/30/2020 8:49 AM EST): Once again chastised. Assessment & Plan (01/23/2020 10:59 AM EDT): No plans to quit. Claims less than 1 pack/day. Assessment & Plan (01/02/2019 8:46 AM EDT): She had managed to quit for about 3 months but is now smoking again. It was again discussed. Assessment & Plan (07/04/2018 8:41 AM EST): Now under a pack per day but continue to smoke. Assessment & Plan (12/06/2017 10:36 AM EDT): We once again spent some time discussing her tobacco habit. 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 She is followed by Dr Gentile at [facility]. Assessment & Plan (07/30/2020 8:48 AM EST): Mild claudication and possible previous TIA. No change in medications and has not had a symptom in over 6 months. I have not seen her recent vascular studies. Assessment & Plan (01/23/2020 10:58 AM EDT): No recent procedures. Recent CT scan reveals patency of both carotids without high-grade disease. Brachiocephalic trunk however does have considerable disease being managed medically. Assessment & Plan (07/04/2018 8:40 AM EST): Followed by Dr. Henson in [place] Assessment & Plan (12/06/2017 10:37 AM EDT): Due for her second carotid endarterectomy. I see no cardiac contraindication to proceeding and consider her at low risk for cardiac complications. Family History Medical History Relation Comments CV disease Father 2 CV disease Mother 2 CV disease Sibling 2 Relation Status Comments Father 1 Father 2 Mother 1 Mother 2 Sibling 1 Sibling 2 Social History Tobacco Use Types Packs/Day Years Used Date Smoking Tobacco: Some Days Smokeless Tobacco: Never Alcohol Use Standard Drinks/Week Comments Yes 0 (1 standard drink = 0.6 oz pur e alcohol) Education Answer Date Recorded Are you interested in more education? Not on vahe e 11/27/2022 Are you concerned about learning? Not on file 11/27/2022 No 11/27/2022 No 11/27/2022 Digital Access Answer Date Recorded No 12/26/2022 No 12/26/2022 Reliable internet access at home? Not on file 12/26/2022 Device with a working camera? Not on file Comments Unknown Sex and Gender Information Value Date Recorded Sex Assigned at Not on file Legal Sex Female 10:37 PM EDT Gender Identity Not on file Sexual Orientation Not on file Last Filed Vital Signs Vital Sign Reading Time Taken Comments Blood Pressure 132/78 07/30/2021 1:15 PM EST Pulse 75 07/30/2021 1:15 PM EST Temperature - - Respiratory Rate - - Oxygen Saturation 96% 07/30/2021 1:15 PM EST Inhaled Oxygen Concentration - - Weight 68.7 kg (151 lb 6.4 oz) 07/30/2021 1:15 P M EST Height 160 cm (5' 2.99 ) 01/27/2021 8:06 AM EDT Body Mass Index 26.83 01/27/2021 8:06 AM EDT Plan of Treatment Health Maintenance Due Date Last Done Comments Adult Td,Tdap Booster 1945 CREATININE LEVEL 1947 POTASSIUM LEVEL 1947 TSH LEVEL 1947 DEPRESSION SCREENING 1959 SMOKING Hx and SMOKELESS TOBACCO SCREENING 12/26/1960 HEPATITIS C SCREENING 12/26/1965 ZOSTER VACCINES (1 of 2) 12/26/1997 OSTEOPOROSIS SCREENING INITI AL (ONE-TIME) 12/26/2012 PNEUMOCOCCAL VACCINES (50+ years) (2 of 2 - PPSV23) 11/13/2017 09/18/2017 RSV VACCINE (1 - 1-dose 75+ series) 12/26/2022 INFLUENZA VACCINE (#1) 2025 COVID-19 VACCINE (3 - 2024-2 6 season) 2025 09/20/2020, 08/23/2020 HEPATITIS A VACCINES Aged Out No long er eligible based on patient's age to complete this topic HIB VACCINES Aged Out No longer eligi ble based on patient's age to complete this topic MENINGOCOCCAL VACCINES (ACWY) Aged Out No longer eligible based on patient's age to complete this topic MENINGOCOCCAL VACCINES (B) Aged Out N o longer eligible based on patient's age to complete this topic Medical Devices Not on file Insurance [employer]IC[employer] [place]MO [place] [address] [place] [address] [address] [place] [place] [address] [address] [place] [address] MEDICARE HMO REPLACEMENT [address]IC[place] [address] [place] [address] [place] [address] MEDICARE HMO REPLACEMENT [employer] H[employer] REPLACEMENT [employer] H[employer] REPLACEMENT Member Subscriber Plan / Payer (Ef fective 2017-Present) Name:BrisatnamKarina sandhu Relation to Subscriber:Self Name:MabellindaKarina Payer ID:Not on file Type:Medicare Address: [place] [id number] Care Teams Ssds Mk 2 Advanced Operator Relationship Specialty Start Date End Date Eric Chase MD [address] [place] [address] [address] [place] [address] PCP - General 05/20/17 Additional Source Comments The information contained in this document represents components of the legal health record. It is not the complete legal health record.[facility]
== END 2025-04-20 09:33 | disposition home or self-care (01) ==
LOC: HO.HMCHD 09:09
PROVIDERS: PCP Internal Medicine; Visit Provider Internal Medicine
DX: I10 Essential (primary) hypertension (principal); I73.9 Peripheral vascular disease, unspecified; E78.5 Hyperlipidemia, unspecified; E11.65 Type 2 diabetes mellitus with hyperglycemia; E03.9 Hypothyroidism, unspecified

== ENCOUNTER → 2025-04-20 09:08 | Outpatient (BNVA) | payer MEDICARE, SELFPAY | PROVIDERS: PCP Internal Medicine; Visit Provider Internal Medicine | DX: I10 Essential (primary) hypertension (principal); E78.5 Hyperlipidemia, unspecified; E11.65 Type 2 diabetes mellitus with hyperglycemia; E03.9 Hypothyroidism, unspecified; I73.9 Peripheral vascular disease, unspecified | CPT/HCPCS: 99212 ==

== ENCOUNTER 2025-04-20 09:38 | Outpatient (REF) | payer MEDICARE, SELFPAY ==
[2025-04-20 10:51] LABS: Hemoglobin A1C 216.0510 umol/L; Total Hemoglobin (HGBA1C) 3551.7499 umol/L
== END 2025-04-20 09:39 | disposition home or self-care (01) ==
LOC: HO.10HDL 09:38
PROVIDERS: Visit Provider Student in an Organized Health Care Education/Training Program
DX: E03.9 Hypothyroidism, unspecified (principal); E11.65 Type 2 diabetes mellitus with hyperglycemia
CPT/HCPCS: 36415; 83036; 84443

== ENCOUNTER 2025-07-20 08:18 | Outpatient (REF) | payer MEDICARE, SELFPAY ==
[2025-07-20 10:01] LABS: MANUAL DIFF FLAG NO
[2025-07-20 10:20] LABS: Hematocrit 44.1 % (37.0-47.0); Hemoglobin 14.6 g/dl (12.0-16.0); Imm Gran Abs Auto 0.02 X10*3/uL (0.00-0.03); Imm Gran Pct Auto 0.3 % (0.0-0.4); Lymphocytes Absolute Auto 0.9 X10*3/uL (1.2-4.9); Mean Corpuscular HGB Conc 33.1 g/dl (31.0-35.0); Mean Corpuscular Hemoglobin 29.9 pg (27.0-33.0); Mean Corpuscular Volume 90.4 fL (80.0-98.0); NRBC Abs Auto 0.000 X10*3/uL (0.0-0.012); NRBC Pct Auto 0.0 /100WBC (0.0-0.2); Platelet Count 146 X10*3/uL (160-400); Red Blood Count 4.88 X10*6/uL (4.20-5.50); White Blood Count 6.2 X10*3/uL (4.8-10.8)
[2025-07-20 13:59] LABS: Alanine Aminotransferase 30 U/L (0-31); Albumin Level 4.8 g/dL (3.5-5.0); Alkaline Phosphatase 73 U/L (39-117); Anion Gap 12 (12-20); Aspartate Amino Transferase 34 U/L (5-31); Blood Urea Nitrogen 18 mg/dL (9-16); Calcium 10.0 mg/dL (8.4-10.2); Carbon Dioxide 26 mmol/L (22-29); Chloride 106 mmol/L (96-108); Cholesterol 134 mg/dL (<200); Estimated Glomerular Filt Rate > 60; HDL Cholesterol 49 mg/dL (>40); Potassium 4.2 mmol/L (3.3-5.1); Sodium 140 mmol/L (135-145); Total Protein 7.5 g/dL (6.5-8.0); Triglycerides 118 mg/dL (<150)
[2025-07-23 03:54] LABS: Syphilis Screen Nonreactive (Nonreactive)
[2025-07-23 04:43] LABS: HBS Num1 68.40 mIU/mL (0-7.99); HBc Num1 0.10 S/CO (0.00-0.79); HBsAGNum1 0.35 S/CO (0.00-0.99); HIV Num 1 0.06 S/CO (0.00-0.99); Hepatitis A Antibody IgM 0.44 Index (0-0.79); Hepatitis B Surface Antigen Negative (Negative); ~HepC Num1 0.09 S/CO (0.00-0.79); ~Hepatitis A Antibody IgM Nonreactive (Nonreactive); ~Hepatitis B Surface Antibody REACTIVE (Nonreactive); ~Hepatitis C Antibody Nonreactive (Nonreactive)
== END 2025-07-20 08:19 | disposition home or self-care (01) ==
LOC: HO.10HDL 08:18
PROVIDERS: PCP Student in an Organized Health Care Education/Training Program; Visit Provider Student in an Organized Health Care Education/Training Program
DX: Z00.00 Encounter for general adult medical examination without abnormal findings (principal); J44.9 Chronic obstructive pulmonary disease, unspecified; K21.9 Gastro-esophageal reflux disease without esophagitis; E11.65 Type 2 diabetes mellitus with hyperglycemia; I10 Essential (primary) hypertension; I73.9 Peripheral vascular disease, unspecified; E87.5 Hyperkalemia; E03.9 Hypothyroidism, unspecified; F17.200 Nicotine dependence, unspecified, uncomplicated; Z71.6 Tobacco abuse counseling
CPT/HCPCS: 36415; 80053; 80061; 82306; 83036; 84443; 85025; 86704; 86706; 86709; 86780; 86803; 87340; 87389; 99212; 99397

== ENCOUNTER 2025-07-20 08:18 | Outpatient (AMB) | payer MEDICARE, SELFPAY ==
--- OUTSIDE RECORDS SUMMARY | 2025-07-20 08:24 | XMS_ITS | Encounter Summary ---
Author Organization [facility] Address [address] [place] [address] Phone Care Team Providers Care Energy Manager Name Role Phone Eric Chase MD Primary Care Provider Reason for Referral * MRI/CAT Scan - Closed Specialty Diagnoses / Procedures Referred By Contac t Referred To Contact Radiology Diagnoses Atherosclerosis of [place] coronary artery of [place] heart without angina pectoris Procedures NC Myocardial Perfusion Stress Single NC Myocardial Perfusion Pharmacologic Stress Multiple Adan Jameson MD Phone: tel: fax: [email or web address] Referral ID Status Reason Start Date Expiration Date Visits Re quested Visits Authorized [id number] Closed 08/31/2018 10/30/2018 1 1 Encounter Details Date Type Department Care Team (Latest Contact Info) Description 09/08/2018 Ancillary Orders [facility] [address], [address] [place] [address] Adan Jameson MD [address] [address] [email or web address] Atherosclerosis of [place] coronary artery of [place] heart without angina pectoris Social History Tobacco [...] in SPECT format, reconstructed tomographically and compared [id number] in short axis, horizontal long axis and [...] this encounter Visit Diagnoses Diagnosis Atherosclerosis of [place] coronary artery of [place] heart without angina pectoris Atherosclerosis of [place] coronary artery of [place] heart without angina pectoris documented in this encounter Care Teams Energy Manager Relationship Specialty Start Date End Date Eric Chase MD [address] [place] [address] [address] [place] [address] PCP - General 05/20/17 documented as of this encounter Additional Source Comments The information contained in this document represents components of the legal health record. It is not the complete legal health record.[facility]
--- OUTSIDE RECORDS SUMMARY | 2025-07-20 08:24 | XMS_ITS | Clinical Summary ---
Author Organization [facility] Address [address] [place] [phone] Phone Care Team Providers Care Research Engineer Marine Equipment Name Role Phone Eric Chase MD Primary Care Provider Allergies No known [...] Problem Noted Date Diagnosed Date Atherosclerosis of [place] ronary artery without angina pectoris 12/03/2017 [...] on high-dose rosuvastatin. Labs were drawn at [place] but have yet to be forwarded. 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 She is followed by Dr Gentile at [facility]. Assessment & Plan (07/30/2020 8:48 [...] AM EST): Followed by Dr. Henson in [place] Assessment & Plan (12/06/2017 10:37 AM EDT): [...] VACCINES (50+ years) (2 of 2 - PPSV23, PCV20, or PCV21) 11/13/2017 09/18/2017 RSV VACCINE (1 - 1-dose [...] Devices Not on file Insurance [employer]IC[employer] HMO [place] [address] [place] [id number] [address] [place] [place] [id number] [address] [place] [id number] [address] [place] [id number] [address] [place] [id number] [address] [place] [id number] MEDICARE HMO REPLACEMENT [employer] [place] MED[employer] HMO REPLACEMENT [employer] H[employer] REPLACEMENT Member Subscriber Plan / Payer (Ef fective 2017-Present) Name:Karina Tsai Relation to Subscriber:Self Name:Karina Tsai Payer ID:Not on file Type:Medicare Address: [place] [id number] Care Teams Research Engineer Marine Equipment Relationship Specialty Start Date End Date Eric Chase MD [address] [place] [address] [address] [place] [address] PCP - General 05/20/17 Additional Source Comments The information contained in this document represents components of the legal health record. It is not the complete legal health record[facility]
--- NOTE | 2025-07-20 08:25 | MHC.PC.OV ---
Vital Signs 07/20/25 08:28 Height 5 ft 3 in Respiration 16 Pulse 78 Pulse Source Pulse Oximeter Temp 97.6 F Temp Source Temporal Artery Scan Pulse Oximetry (%) 96 Oxygen Delivery Method Room Air Intake Visit Reasons: Physical (see comments) Research Librarian Required: No Accompanied by: Self / Same As Patient Allergies No Known Allergies (No Known Allergies*) Allergy (Verified 07/20/25 08:25) Medication List - Last Reconciled 07/20/25 by Scott Nix MD aspirin (Adult Aspirin Regimen) 81 mg PO DAILY [id number] 600 mg calcium- 800 unit-50 mg 1 tab PO BEDTIME cilostazol 100 mg PO BID flaxseed oil ([place]-3 Flaxseed Oil) 1,000 mg PO DAILY gabapentin 300 mg PO DAILY glipizide 10 mg PO BID Januvia (sitagliptin phosphate) 100 mg PO DAILY NS levothyroxine 100 mcg PO DAILY losartan 100 mg PO DAILY metformin ER 1,000 mg (2 x 500 mg) PO BID 30 days metoprolol tartrate 25 mg PO BID 90 days nicotine 1 patch transdermal DAILY rosuvastatin 40 mg PO DAILY Tobacco use date assessed: 01/18/25 Fall risk assessment: 1 Fall in past year Last assessed Fall Risk: 07/20/25 Dental Screening Dental Screen Date: 04/20/25 HPI HPI Comments History of Present Illness Details History of Present Illness The patient is a 79 year old female presenting for an annual physical examination and management of multiple chronic conditions. She reports new onset, intermittent heartburn which she relates to her diet. Her chronic conditions include peripheral artery disease managed with aspirin 81 mg and cilostazol 100 mg twice daily; chronic pain managed with gabapentin 300 mg; and hypothyroidism treated with levothyroxine 100 mcg daily. She is also treated for hyperlipidemia with rosuvastatin 40 mg daily. For hypertension, the patient takes losartan 100 mg and metoprolol tartrate, the dose of which was recently reduced to 25 mg twice daily from a previous higher dose due to borderline low blood pressure readings of 90/68 mmHg. She now reports her blood pressure is normal, around 120 systolic. For type 2 diabetes, she is on a regimen of glipizide 10 mg twice daily, Januvia 100 mg daily, and metformin 1000 mg twice daily. She expresses concern that her A1c will be high due to poor dietary choices. The patient has a significant smoking history of approximately three-quarters of a pack per day for about 50 years. She reports an associated cough and shortness of breath, consistent with COPD. A prior attempt to quit smoking with a nicotine patch lasted two weeks before she relapsed. Regarding health screenings, her last mammogram was completed and she is due for her next one in October of the following year. She has a history of refusing colonoscopy but has agreed to consider a stool-based screening test. She has not had prior lung cancer screening. She reports having received both her flu and COVID shots for the season. Medical History: - Peripheral Artery Disease - Type 2 Diabetes Mellitus - Hypertension - Hyperlipidemia - Hypothyroidism - Chronic Obstructive Pulmonary Disease - Tobacco Use Disorder - Gastroesophageal reflux disease (new onset) - Chronic pain Surgical History: - Hand surgery Medications: - Aspirin 81 mg daily for peripheral artery disease - Cilostazol 100 mg twice a day for peripheral artery disease - Gabapentin 300 mg for pain - Glipizide 10 mg twice a day for diabetes - Januvia 100 mg daily for diabetes - Metformin 1000 mg twice a day for diabetes - Levothyroxine 100 mcg daily for hypothyroidism - Losartan 100 mg daily for hypertension - Metoprolol tartrate 25 mg twice a day for hypertension - Rosuvastatin 40 mg for high cholesterol Diagnostic Results: - Screening Tests: Mammogram due in October of next year. Social History - Tobacco Use: The patient smokes approximately three-quarters of a pack of cigarettes per day and has been smoking since she was young, for about 50 years. - Smoking Cessation History: She recently attempted to quit using a nicotine patch for two weeks but was unsuccessful. - Diet: Reports a poor diet, which she suspects is contributing to recent heartburn and may affect her A1C levels, especially during the holiday season. [facility] Medical History (Updated 07/20/25 @ 09:04 by Scott Nix MD) Annual physical exam GERD without esophagitis COPD (chronic obstructive pulmonary disease) Hypothyroidism Tobacco use Diabetes Hyperlipidemia HTN (hypertension) Carotid disease, bilateral PVD (peripheral vascular disease) CAD (coronary artery disease) Surgical History Status post bilateral carotid endarterectomy Stented coronary artery Family History Father Heart disease Mother Diabetes Heart disease Cancer Social History Housing: House Alcohol intake: current Alcohol intake frequency: a few times a week Alcohol type: wine Patient Tobacco Use Status: Current everyday Tobacco user Cigarettes Per Day: 10 Years Smoked: 50 years e-Cigarette/Vaping Use: Never Used service: No Current occupational status: retired Cognitive needs: No Hearing needs: No Vision needs: Yes (reading glasses) Questionnaire Thrive Questionnaire Date Thrive assessed: 01/18/25 AUDIT C Alcohol Use Questionnaire (AUDIT-C) 2. How many drinks containing alcohol do you have on a typical day when you are drinking?: 1 or 2 3. How often do you have six or more drinks on one occasion?: Never Total Score: 0 DARIN-7 AMB Questionnaire DARIN-7 Date DARIN - 7 assessed: 01/18/25 Source: Developed by Drs. Jeffery Sun, Juanita Timmons, Vinay Dean and colleagues, with an educational kelsey from [employer]. Review of Systems Narrative Review of Systems - Constitutional: Reports feeling okay. - Gastrointestinal: Reports intermittent heartburn. - Cardiovascular: Denies chest pain. - Respiratory: Reports a cough and dyspnea on exertion. - Neurological: Denies pain aside from chronic pain being managed. - Psychiatric: Reports good mood, denies depression or anxiety. All systems reviewed & are unremarkable except as reviewed in HPI and above Physical exam (Primary Care) Vital Signs: Last Vital Signs Temp 97.6 F 07/20/25 08:28 Pulse 78 07/20/25 08:28 Resp 16 07/20/25 08:28 Pulse Ox 96 07/20/25 08:28 Oxygen Delivery Method Room Air 07/20/25 08:28 Care Plan Goal for BP management: Within Goal Tobacco/Smoking Status: Tobacco use Status Tobacco use date assessed 01/18/25 07/20/25 08:29 Patient Tobacco Use Status Current everyday Tobacco 07/20/25 08:29 e-Cigarette/Vaping Use Never Used 07/20/25 08:29 Are you ready to quit: Yes Tobacco cessation counseling provided: Yes Relapse Prevention: discussed the importance of a supportive environment and discussed extending NRT Number of minutes spent counselin CPT code: Less than 3 minutes Thrive Assessment: Date of Thrive Assessment Date Thrive assessed 01/18/25 07/20/25 08:29 Narrative Physical Exam General: +Alert and oriented, Well nourished, No acute distress. Eye: Pupils are equal, round and reactive to light, Intact accommodation, Extraocular movements are intact, Normal conjunctiva, Vision unchanged. HENT: Normocephalic, Atraumatic, Tympanic membranes are clear, Normal hearing, Oral mucosa is moist, No pharyngeal erythema, Ear canals patent. Respiratory: Lungs CTA bilaterally, Wheezing noted, Respirations are non-labored. Cardiovascular: Regular rate, Regular rhythm, S1 auscultated, S2 auscultated, No murmur, Good pulses equal in all extremities, Normal peripheral perfusion, No edema. Gastrointestinal: Soft, Non-tender, Non-distended, Normal bowel sounds, No organomegaly. Musculoskeletal: Normal range of motion, Normal strength, No tenderness, No swelling, No deformity, Normal gait. Integumentary: Warm, Dry, [place], Intact. Neurologic: Alert, Oriented, Normal sensory, Normal motor function, No focal defects, Cranial Nerves II-XII are grossly intact, Normal deep tendon reflexes. Psychiatric: Cooperative, Appropriate mood & affect, Normal judgment. Coding Level of Care Code Est Pt Level 4 (42532) Est Pt Prev Care >65y(21950) Diagnoses Tobacco use Z72.0 Chronic obstructive pulmonary disease, unspecified COPD type J44.9 COPD type: unspecified COPD GERD without esophagitis K21.9 Type 2 diabetes mellitus with hyperglycemia, without long-term current use of insulin E11.65 Diabetes mellitus type: type 2 Diabetes mellitus nursing home insulin use: without nursing home use Diabetes mellitus complication status: with hyperglycemia Primary hypertension I10 Hypertension type: primary hypertension PVD (peripheral vascular disease) I73.9 Hyperlipidemia, unspecified hyperlipidemia type E78.5 Hyperlipidemia type: unspecified Hypothyroidism, unspecified type E03.9 Hypothyroidism type: unspecified Annual physical exam Z00.00 Comment [id number] Assessment & Plan Assessment & Plan (1) Tobacco use: Comment: - The patient has a 23-[id number] smoking history and continues to smoke 0.75 packs per day. - She was strongly counseled on the necessity of quitting. - Plan to encourage another attempt with nicotine patches despite them not being covered by insurance. Code(s): Z72.0 - Tobacco use Category: Social Hx (2) COPD (chronic obstructive pulmonary disease): Comment: - The patient has symptoms of cough and shortness of breath, with wheezing noted on exam. - Plan to prescribe an albuterol inhaler for as-needed use. - She was advised that therapy can be escalated if symptoms persist. Code(s): J44.9 - Chronic obstructive pulmonary disease, unspecified Category: Medical Qualifiers: COPD type: unspecified COPD Qualified Code(s): J44.9 - Chronic obstructive pulmonary disease, unspecified (3) GERD without esophagitis: Comment: - Patient reports new-onset heartburn. - Plan to prescribe pantoprazole to be taken on an empty stomach. - The patient was counseled to identify dietary triggers. Code(s): K21.9 - Gastro-esophageal reflux disease without esophagitis Category: Medical (4) Diabetes: Comment: - The patient is concerned her A1c may be elevated. - Will continue current medications including glipizide, Januvia, and metformin. - An A1c level will be checked with today's labs. - The patient was counseled that if her A1c is high, insulin or other injectable therapy will be necessary to control her blood sugar and reduce her high cardiovascular risk. Code(s): E11.9 - Type 2 diabetes mellitus without complications Category: Medical Qualifiers: Diabetes mellitus type: type 2 Diabetes mellitus assistant terminal manager insulin use: without nursing home use Diabetes mellitus complication status: with hyperglycemia Qualified Code(s): E11.65 - Type 2 diabetes mellitus with hyperglycemia (5) HTN (hypertension): Comment: - The condition is well-controlled. - The dose of metoprolol was recently reduced to 25 mg twice daily, and the patient reports normal blood pressure readings at home. - Will continue current medications and resend a 90-day supply of metoprolol to the pharmacy. Code(s): I10 - Essential (primary) hypertension Category: Medical Qualifiers: Hypertension type: primary hypertension Qualified Code(s): I10 - Essential (primary) hypertension (6) PVD (peripheral vascular disease): Comment: - Administrative Assistant Receptionist on smoking cessation due to its worsening impact on vascular health. - Continued follow up with vascular (Recently evaluated by vascular and completed studies on left) Code(s): I73.9 - Peripheral vascular disease, unspecified Category: Medical (7) Hyperlipidemia: Comment: Continue rosuvastatin We will repeat blood work today Code(s): E78.5 - Hyperlipidemia, unspecified Category: Medical Qualifiers: Hyperlipidemia type: unspecified Qualified Code(s): E78.5 - Hyperlipidemia, unspecified (8) Hypothyroidism: Comment: - Check current TSH levels. - Maintain Levothyroxine at current dose pending lab results. Code(s): E03.9 - Hypothyroidism, unspecified Category: Medical Qualifiers: Hypothyroidism type: unspecified Qualified Code(s): E03.9 - Hypothyroidism, unspecified (9) Annual physical exam: Comment: - Plan to check labs including A1c, thyroid function, and vitamin D, as well as a urinalysis. - The patient is up to date on her flu and COVID immunizations. - A mammogram is due next October. - She will be scheduled for a lung cancer screening CT scan. - Will order a stool-based test for colon cancer screening. - Follow up in 3 months. Code(s): Z00.00 - Encounter for general adult medical examination without abnormal findings Category: Medical Plan: Health Maintenance: - Immunizations: Patient reports having received both flu and COVID-19 vaccines for the current season. - Cancer Screening: Mammogram is due in October of next year. - Cancer Screening: A stool-based test will be ordered for colon cancer screening, as the patient declines colonoscopy. - Cancer Screening: The patient will be scheduled for a lung cancer screening CT scan due to extensive smoking history. - Lab Monitoring: Annual labs including A1c, thyroid panel, vitamin D, and a urinalysis will be checked. - Lifestyle Counseling: The patient was strongly counseled to stop smoking and advised to purchase nicotine patches to aid in cessation. Patient was informed and verbally consented to the use of an ambient scribe for clinic note documentation during this visit. Vital signs reviewed. Comprehensive history, review of systems, and physical exam completed. Medications, allergies, and problem list reviewed and updated. Counseling provided on nutrition, regular exercise, sleep hygiene, and moderation of alcohol use. Discussed age-appropriate screenings (mammogram, colonoscopy, Pap, bone density) and immunizations (flu, COVID, shingles, Tdap). Screened for depression, fall risk, and home safety; no current concerns. Discussed stress management, dental and vision care, and importance of ongoing preventive follow-up. Routine labs ordered for metabolic and lipid screening. Patient educated on healthy lifestyle and agrees with the plan. Plan I conducted an annual physical examination for this 79-year-old female and reviewed her multiple chronic conditions. We discussed her new-onset heartburn, for which I prescribed pantoprazole and advised on dietary awareness. I strongly emphasized the need for smoking cessation, given her 50-year smoking history and its contribution to her COPD, for which an albuterol inhaler was prescribed due to wheezing on exam and reported symptoms. We discussed her high cardiovascular risk, which is compounded by hypertension, diabetes, hyperlipidemia, and smoking. Regarding her diabetes, I explained that if her A1c comes back high, we will need to advance therapy to insulin or other injectables to mitigate her risk of heart attack or stroke. Concerning preventative screenings, we discussed her refusal to undergo a colonoscopy, and she agreed to a stool-based test as an alternative, with the understanding that a positive result would require a colonoscopy. I also ordered a lung cancer screening CT scan. Labs were ordered, and a follow-up is scheduled in three months. Orders: Orders Complete Blood Count Auto Diff Today Z00.00 - Encounter for general adult medical examination without abnormal findings Comprehensive Met. Panel Today Z00.00 - Encounter for general adult medical examination without abnormal findings Hemoglobin A1c Today Z00.00 - Encounter for general adult medical examination without abnormal findings Lipid Panel Today Z00.00 - Encounter for general adult medical examination without abnormal findings Syphilis Screen Today Z00.00 - Encounter for general adult medical examination without abnormal findings TSH reflex Free T4 Today Z00.00 - Encounter for general adult medical examination without abnormal findings Vitamin D 25-OH Total Today Z00.00 - Encounter for general adult medical examination without abnormal findings CT lung screening Today Z72.0 - Tobacco use Hepatitis A,B,C Profile Today Z00.00 - Encounter for general adult medical examination without abnormal findings HIV Ab/Ag Today Z00.00 - Encounter for general adult medical examination without abnormal findings Microalbumin, Random (w Creat) Today Z00.00 - Encounter for general adult medical examination without abnormal findings Referrals Cologuard Test Z12.11 - Encounter for screening for malignant neoplasm of colon Medications: New albuterol sulfate 90 mcg/actuation (Ventolin HFA) 1 inh inhalation QID PRN 8.5 grams 0RF shortness of breath or wheezing nicotine apply 1-21 mg NICOTINE PATCH daily for 28 days; follow with 1-14 mg PATCH daily for 14 days, then 1-7mg PATCH daily for 14 days transdermal 56 patches 0RF pantoprazole 40 mg PO DAILY 90 tabs 0RF Refilled metoprolol tartrate 25 mg PO BID 180 tabs 3RF 90 days Discontinued nicotine Discontinued Reason: Doctor's Order 1 patch transdermal DAILY 28 ea 3RF Patient Instructions: - You must stop smoking. - You should buy the nicotine patches again to help you quit. - Go to the lab to get your blood work done and provide a urine sample. - For your heartburn, I am sending a prescription for pantoprazole. Take it first thing in the morning on an empty stomach, at least an hour before your thyroid pill. - I am sending a prescription for an albuterol inhaler. Use it as needed when you feel short of breath. - I have sent a 3-month refill for your metoprolol 25 mg medication. - A kit to test your stool for colon cancer screening will be ordered for you. - You will get a call to schedule a CT scan of your chest for lung cancer screening. - Schedule a follow-up appointment to see me in three months. - Continue taking all of your other medications as directed.
[2025-07-20 08:28] VITALS: PULSE 78; RESP 16; TEMP 36.4; O2SAT 96
== END 2025-07-20 08:56 | disposition home or self-care (01) ==
LOC: HO.HMCHD 08:19
PROVIDERS: PCP Student in an Organized Health Care Education/Training Program; Visit Provider Student in an Organized Health Care Education/Training Program
DX: Z00.00 Encounter for general adult medical examination without abnormal findings (principal); J44.9 Chronic obstructive pulmonary disease, unspecified; E11.65 Type 2 diabetes mellitus with hyperglycemia; Z72.0 Tobacco use; K21.9 Gastro-esophageal reflux disease without esophagitis; I10 Essential (primary) hypertension; I73.9 Peripheral vascular disease, unspecified; E78.5 Hyperlipidemia, unspecified; E03.9 Hypothyroidism, unspecified